=== PATIENT | male | born 1955 | race American Indian/Alaskan Native ===

== ENCOUNTER 2020-07-03 07:22 | Outpatient (CLI) | payer OTHER ==
[2020-07-03 14:53] LABS: BASOPHILS # (AUTO) 0.1 10^3/uL (0.0-0.1); BASOPHILS % (AUTO) 1.2 %; EOSINOPHILS # (AUTO) 0.1 10^3/uL (0.0-0.7); EOSINOPHILS % (AUTO) 1.5 %; HGB - HEMOGLOBIN 14.1 g/dL (14.0-18.0); LYMPHOCYTES # (AUTO) 1.5 10^3/uL (1.5-3.5); LYMPHOCYTES % (AUTO) 29.2 %; MEAN CORPUSCULAR HEMOGLOBIN 34.1 pg (27.0-31.0); MEAN CORPUSCULAR VOLUME 106.3 fL (80.0-94.0); MEAN PLATELET VOLUME 10.4 fL (7.4-11.4); MONOCYTES # (AUTO) 0.6 10^3/uL (0.0-1.0); MONOCYTES % (AUTO) 10.8 %; NEUTROPHILS % (AUTO) 56.9 %; PLT - PLATELET COUNT 259 10^3/uL (130-450); RED BLOOD COUNT 4.14 10^6/uL (4.70-6.10); RED CELL DISTRIBUTION WIDTH 13.2 % (12.0-15.0); WHITE BLOOD COUNT 5.2 x10^3/uL (4.8-10.8)
[2020-07-03 15:20] LABS: ALBUMIN 3.9 g/dL (3.2-5.5); ALBUMIN/GLOBULIN RATIO 1.3 (1.0-2.2); ALKALINE PHOSPHATASE 63 IU/L (42-121); ALT ALANINE AMINOTRANSFERASE 48 IU/L (10-60); AST ASPARTATE AMINOTRANSFERASE 28 IU/L (10-42); BILIRUBIN,TOTAL 0.8 mg/dL (0.2-1.0); BUN - BLOOD UREA NITROGEN 21 mg/dL (6-20); CALCIUM 8.8 mg/dL (8.5-10.3); CARBON DIOXIDE - CO2 27 mmol/L (21-32); CHLORIDE 101 mmol/L (101-111); CHOLESTEROL 173 mg/dL; CREATININE 0.8 mg/dL (0.6-1.2); GLUCOSE 150 mg/dL (70-100); HDL CHOLESTEROL 57 mg/dL; LDL CHOLESTEROL,CALCULATED 101 mg/dL; LDL CHOLESTEROL,DIRECT 101 mg/dL; LDL/HDL RATIO 1.8 (<3.6); TOTAL PROTEIN 6.9 g/dL (6.7-8.2); VLDL CHOLESTEROL 15 mg/dL
[2020-07-03 20:03] LABS: HEMOGLOBIN A1c% 5.9 % (4.27-6.07)
== END 2020-07-03 07:23 | disposition home or self-care (01) ==
LOC: LAB.S 07:22
PROVIDERS: ATTEND Internal Medicine Cardiovascular Disease
DX: I48.21 Permanent atrial fibrillation (principal); Z79.01 Long term (current) use of anticoagulants; R73.03 Prediabetes; I10 Essential (primary) hypertension; E78.5 Hyperlipidemia, unspecified
CPT/HCPCS: 36415; 80053; 80061; 83036; 83721; 84443; 85025

== ENCOUNTER 2021-01-07 06:45 | Outpatient (CLI) | payer OTHER, MEDICARE ==
[2021-01-07 15:07] LABS: ALBUMIN 3.8 g/dL (3.2-5.5); ALBUMIN/GLOBULIN RATIO 1.3 (1.0-2.2); BILIRUBIN,TOTAL 0.7 mg/dL (0.2-1.0); CALCIUM 9.1 mg/dL (8.5-10.3); CREATININE 0.8 mg/dL (0.6-1.2); POTASSIUM 4.5 mmol/L (3.5-5.0); TOTAL PROTEIN 6.7 g/dL (6.7-8.2)
== END 2021-01-07 06:46 | disposition home or self-care (01) ==
LOC: LAB.S 06:45
PROVIDERS: ATTEND Internal Medicine Cardiovascular Disease
DX: I10 Essential (primary) hypertension (principal)
CPT/HCPCS: 36415; 80053

== ENCOUNTER 2023-04-01 07:08 | Outpatient (CLI) | payer MEDICARE, OTHER ==
[2023-04-01 14:41] LABS: BASOPHILS # (AUTO) 0.1 10^3/uL (0.0-0.1); BASOPHILS % (AUTO) 1.4 %; EOSINOPHILS # (AUTO) 0.2 10^3/uL (0.0-0.7); EOSINOPHILS % (AUTO) 4.6 %; HCT - HEMATOCRIT 46.5 % (42.0-52.0); HGB - HEMOGLOBIN 15.1 g/dL (14.0-18.0); LYMPHOCYTES # (AUTO) 1.6 10^3/uL (1.5-3.5); LYMPHOCYTES % (AUTO) 31.8 %; MEAN CORPUSCULAR HEMOGLOBIN 33.3 pg (27.0-31.0); MEAN CORPUSCULAR HGB CONC 32.5 g/dL (32.0-36.0); MEAN CORPUSCULAR VOLUME 102.6 fL (80.0-94.0); MEAN PLATELET VOLUME 10.6 fL (7.4-11.4); MONOCYTES # (AUTO) 0.6 10^3/uL (0.0-1.0); MONOCYTES % (AUTO) 11.3 %; NEUTROPHILS # (AUTO) 2.5 10^3/uL (1.5-6.6); NEUTROPHILS % (AUTO) 50.1 %; PLT - PLATELET COUNT 233 10^3/uL (130-450); RED BLOOD COUNT 4.53 10^6/uL (4.70-6.10); RED CELL DISTRIBUTION WIDTH 14.1 % (12.0-15.0)
[2023-04-01 15:22] LABS: ALBUMIN 4.1 g/dL (3.2-5.5); ALBUMIN/GLOBULIN RATIO 1.6 (1.0-2.2); ALKALINE PHOSPHATASE 91 IU/L (42-121); ALT ALANINE AMINOTRANSFERASE 41 IU/L (10-60); AST ASPARTATE AMINOTRANSFERASE 27 IU/L (10-42); BILIRUBIN,TOTAL 0.5 mg/dL (0.2-1.0); BUN - BLOOD UREA NITROGEN 11 mg/dL (6-20); CARBON DIOXIDE - CO2 27 mmol/L (21-32); CHLORIDE 105 mmol/L (101-111); CHOL/HDL RATIO 3.5 (<5.0); CHOLESTEROL 155 mg/dL; CREATININE 0.7 mg/dL (0.6-1.3); GFR - MDRD 112 (>89); GLUCOSE 116 mg/dL (74-104); HDL CHOLESTEROL 44 mg/dL; LDL CHOLESTEROL,CALCULATED 80 mg/dL; LDL/HDL RATIO 1.8 (<3.6); POTASSIUM 4.4 mmol/L (3.5-4.5); SODIUM 139 mmol/L (135-145); TOTAL PROTEIN 6.6 g/dL (6.4-8.9); TRIGLYCERIDES 156 mg/dL (48-352); VLDL CHOLESTEROL 31 mg/dL
[2023-04-01 15:27] LABS: THYROID STIMULATING HORMONE 1.03 uIU/mL (0.34-5.60)
== END 2023-04-01 07:09 | disposition home or self-care (01) ==
LOC: LAB.S 07:08
PROVIDERS: ATTEND Registered Nurse
DX: I10 Essential (primary) hypertension (principal); Z13.228 Encounter for screening for other metabolic disorders; Z13.220 Encounter for screening for lipoid disorders; Z13.29 Encounter for screening for other suspected endocrine disorder; Z13.0 Encounter for screening for diseases of the blood and blood-forming organs and certain disorders involving the immune mechanism
CPT/HCPCS: 36415; 80053; 80061; 83721; 84443; 85025

== ENCOUNTER 2024-05-24 14:08 | Inpatient (IN) ==
[2024-05-24 15:59] LABS: BASOPHILS % (AUTO) 0.2 %; HCT - HEMATOCRIT 38.6 % (42.0-52.0); HGB - HEMOGLOBIN 13.2 g/dL (14.0-18.0); LYMPHOCYTES # (AUTO) 1.1 10^3/uL (1.5-3.5); LYMPHOCYTES % (AUTO) 10.5 %; MEAN CORPUSCULAR HEMOGLOBIN 35.3 pg (27.0-31.0); MEAN CORPUSCULAR HGB CONC 34.2 g/dL (32.0-36.0); MEAN CORPUSCULAR VOLUME 103.2 fL (80.0-94.0); MONOCYTES % (AUTO) 10.1 %; NEUTROPHILS # (AUTO) 8.1 10^3/uL (1.5-6.6); NEUTROPHILS % (AUTO) 78.9 %; PLT - PLATELET COUNT 227 10^3/uL (130-450); RED BLOOD COUNT 3.74 10^6/uL (4.70-6.10); RED CELL DISTRIBUTION WIDTH 16.2 % (12.0-15.0); WHITE BLOOD COUNT 10.3 x10^3/uL (4.8-10.8)
[2024-05-24 16:23] LABS: MAGNESIUM 2.3 mg/dL (1.7-2.3)
[2024-05-24 16:27] LABS: ALBUMIN 3.1 g/dL (3.2-5.5); BILIRUBIN,TOTAL 1.9 mg/dL (0.2-1.0); CALCIUM 8.5 mg/dL (8.5-10.3); CREATININE 1.4 mg/dL (0.6-1.3); POTASSIUM 6.1 mmol/L (3.5-4.5); TOTAL PROTEIN 6.3 g/dL (6.4-8.9)
--- NOTE | 2024-05-24 17:58 | ED Physician Documentation ---
History of Present Illness Stated complaint Stated Complaint: Chief complaint Chief Complaint: Ext Problem Meds/Allgy Home Medications Ambulatory Orders Medication Instructions Recorded Confirmed apixaban 5 mg tablet (Eliquis) 5 mg PO BID 03/16/24 05/07/24 diltiazem HCl 240 mg capsule,24 240 mg PO QAM 03/16/24 05/07/24 hr,extended release (Tiazac) losartan 25 mg tablet 25 mg PO QDAY 03/16/24 05/07/24 clotrimazole-betamethasone 1 1 applic topical BID 04/06/24 04/06/24 %-0.05 % topical cream fluconazole 150 mg tablet 150 mg PO QDAY 04/06/24 04/06/24 hydrochlorothiazide 12.5 mg tablet 12.5 mg PO QAM #30 tabs 05/07/24 05/07/24 hydrochlorothiazide 12.5 mg tablet 12.5 mg PO QAM #30 tabs 05/08/24 Allergies Allergies Allergy/AdvReac Type Severity Reaction Status Date / Time acetaminophen (From Percocet) Allergy Severe Unknown Verified 05/24/24 14:48 oxycodone (From Percocet) Allergy Severe Unknown Verified 05/24/24 14:48 [facility] Social History Social History (Updated 05/07/24 @ 07:34 by Cornelia Mello, RN, BSN) Smoking Status: Former smoker If you are a former smoker, when did you quit? (Date/Year): 2017 Relationship: Do you feel safe in your home environment?: Yes Suffered physical, verbal, emotional, or financial abuse?: No POLST Patient has POLST: No Results Vitals Vitals: Vital Signs - 24 hr 05/24/24 14:48 05/24/24 17:10 05/24/24 17:30 Temperature 36.5 C Temperature Source Tympanic Pulse Rate 80 86 Respiratory Rate 16 Blood Pressure 118/53 L 105/53 L O2 Saturation 99 100 O2 Source Room air Room air Pain Intensity 0 0 0 Oxygen O2 Source Room air Labs Labs: Laboratory Tests 05/24/24 15:52 WBC 10.3 RBC 3.74 L Hgb 13.2 L Hct 38.6 L MCV 103.2 H MCH 35.3 H MCHC 34.2 RDW 16.2 H Plt Count 227 MPV 10.0 Neut # (Auto) 8.1 H Lymph # (Auto) 1.1 L Foster # (Auto) 1.0 Eos # (Auto) 0.0 Baso # (Auto) 0.0 Absolute Nucleated RBC 0.00 Nucleated RBC % 0.0 Sodium 126 L Potassium 6.1 H* Chloride 95 L Carbon Dioxide 20 L Anion Gap 11.0 BUN 53 H Creatinine 1.4 H Estimated GFR (MDRD) 50 L Glucose 135 H Calcium 8.5 Magnesium 2.3 Total Bilirubin 1.9 H AST 68 H ALT 64 H Alkaline Phosphatase 147 H B-Natriuretic Peptide 311 H Total Protein 6.3 L Albumin 3.1 L Globulin 3.2 Albumin/Globulin Ratio 1.0 Discharge Plan Discharge Prescriptions: No Action losartan 25 mg tablet 25 mg PO QDAY Eliquis 5 mg tablet 5 mg PO BID diltiazem HCl [Tiazac] 240 mg capsule,extended release 24 hr 240 mg PO QAM hydrochlorothiazide 12.5 mg tablet 12.5 mg PO QAM Qty: 30 0RF hydrochlorothiazide 12.5 mg tablet 12.5 mg PO QAM Qty: 30 0RF clotrimazole-betamethasone 1-0.05 % cream 1 applic topical BID fluconazole 150 mg tablet 150 mg PO QDAY Print Language: Turkish Stand Alone Forms: PCP List
[2024-05-24] MEDS: SODIUM ZIRCONIUM CYCLOSILICATE 5 GM PACKET PO ONE (18:07)
[2024-05-24] MEDS: SODIUM CHLORIDE 0.9% 1,000 ML IV STA (18:08)
--- NOTE | 2024-05-24 18:21 | XRAY Report ---
PROCEDURE: XR Chest 1V INDICATIONS: fluid overload evaluation TECHNIQUE: One view of the chest was acquired. COMPARISON: None. FINDINGS: Surgical changes and devices: None. Lungs and pleura: Low lung volumes. Ill-defined opacity projects over the left lower lung. No draina ble effusions. Mediastinum: Normal heart size Bones and chest wall: Unremarkable IMPRESSION: Low lung volumes on single view radiography. Ill-defined left lower lung opacity, probably due to ov erlying soft tissue artifact. A layering effusion is also possible. A lateral view could be helpful. Reviewed by: Conner Bonner MD on 05/24/2024 5:19 PM [facility] Approved by: Conner Bonner MD on 05/24/2024 5:19 PM [facility] Station ID: [id number]
[2024-05-24] MEDS: cefTRIAXone 1 GM in SODIUM CHLORIDE 0.9% MINIBAG 100 ML IV STA (18:40)
[2024-05-24] MEDS: cefTRIAXone 1 GM VIAL IVP STA (18:43)
[2024-05-24] MEDS: VANCOMYCIN INJ 2 GM in SODIUM CHLORIDE 0.9% 500 ML IV ONE (19:03)
[2024-05-24] MEDS: FUROSEMIDE 40 MG/4 ML VIAL IVP SCH (19:03)
--- NOTE | 2024-05-24 19:19 | HISTORY & PHYSICAL EXAMINATION ---
Chief Complaint Chief Complaint Chief Complaint: Leg swelling History of Present Illness Admitted From Admitted From:: Home History Obtained From Records Reviewed: EMR History obtained from: EMR, patient interview Exam Limitations: None History of Present Illness HPI Comment/Other: 68-year-old male PMH of A-fib who has had swelling in his legs since 05/03/2024. He initially presented to a walk-in clinic, where he reported this swelling and asked for a water pill. He was started on hydrochlorothiazide, and his swelling has not improved much. Now, he has red discoloration in both legs. In the ER, CMP showed multiple abnormalities including sodium 126, potassium 6.1, CO2 20, creatinine 1.4, 0.8 a month ago. BNP 383, CRP 5.8. Hospitalist was contacted for admission for acute kidney injury, fluid overload, hyponatremia Meds/Allgy Home Medications Ambulatory Orders Medication Instructions Recorded Confirmed apixaban 5 mg tablet (Eliquis) 5 mg PO BID 03/16/24 05/07/24 diltiazem HCl 240 mg capsule,24 240 mg PO QAM 03/16/24 05/07/24 hr,extended release (Tiazac) losartan 25 mg tablet 25 mg PO QDAY 03/16/24 05/07/24 clotrimazole-betamethasone 1 1 applic topical BID 04/06/24 04/06/24 %-0.05 % topical cream fluconazole 150 mg tablet 150 mg PO QDAY 04/06/24 04/06/24 hydrochlorothiazide 12.5 mg tablet 12.5 mg PO QAM #30 tabs 05/07/24 05/07/24 hydrochlorothiazide 12.5 mg tablet 12.5 mg PO QAM #30 tabs 05/08/24 Allergies Allergies Allergy/AdvReac Type Severity Reaction Status Date / Time acetaminophen (From Percocet) Allergy Severe Unknown Verified 05/24/24 14:48 oxycodone (From Percocet) Allergy Severe Unknown Verified 05/24/24 14:48 [facility] Social History Social History (Updated 05/07/24 @ 07:34 by Cornelia Mello, RN, BSN) Smoking Status: Former smoker If you are a former smoker, when did you quit? (Date/Year): 2018 Relationship: Do you feel safe in your home environment?: Yes Suffered physical, verbal, emotional, or financial abuse?: No POLST Patient has POLST: No Review of Systems Status of ROS: 10 or more systems reviewed and unremarkable except as noted in history and below Constitutional Denies: Fever or Chills Cardiovascular Reports: Irregular heart rate (History of atrial fibrillation); Denies: chest pain, palpitations or shortness of breath with exertion Respiratory Denies: Shortness of breath or Cough Gastrointestinal Denies: Abdominal pain or Abdominal distention Genitourinary Denies: Painful urination or Flank pain Integumentary/Breast Reports: Changes in skin color (Redness in legs associated with swelling) Neurological Denies: General weakness Exam Constitutional normal general appearance, no apparent distress and abnormal body habitus (obese) HENMT normocephalic and head/scalp atraumatic Eyes PERRL Neck/C-Spine visual inspection normal Lymph no lymphadenopathy noted Chest inspection of chest normal Respiratory breath sounds equal bilaterally and clear to auscultation bilaterally Cardiovascular normal heart rate noted Gastrointestinal abdomen abnormal to inspection (Protuberant) Extremities Gross edema and BLE, with red discoloration and blisters Neurology patternmaker hand II-XII intact and GCS 15 Psychiatry oriented x3 Skin Both legs swollen and red Conclusion/Plan Problem List (1) Hyponatremia: Plan: Likely dilutional Check UA 40 mg IV daily Lasix Strict LEIGH ANN Sodium every 4h (2) Acute kidney failure: Plan: Acute kidney failure with metabolic acidosis and hyperkalemia Received Lokelma per ER provider Repeat CMP in progress Cautiously repleting bicarb given hyponatremia 1300 mg sodium bicarb p.o. twice daily (3) Lower extremity edema: Plan: Lasix Echo CRP was elevated, will go ahead and cover for cellulitis Received Rocephin, vancomycin per ER provider Check MRSA swab Continue Rocephin 1 g daily (4) Hypertension, essential, benign: Plan: Continue home regimen after pharmacy verification Hold nephrotoxic agents (5) Atrial fibrillation, chronic: Plan: Continue home regimen after pharmacy verification (6) Elevated LFTs: Plan: No upper abdominal pain Trend CMP Hepatitis panel in a.m. Plan Placed in observation Full code His mother is his surrogate decision maker Lab Results Lab results reviewed: Yes 05/24/24 15:52 05/24/24 15:52
[2024-05-24 19:21] LABS: BILIRUBIN,TOTAL 1.8 mg/dL (0.2-1.0); CALCIUM 8.2 mg/dL (8.5-10.3); CREATININE 1.3 mg/dL (0.6-1.3); POTASSIUM 5.9 mmol/L (3.5-4.5)
[2024-05-24] MEDS ORDERED: ONDANSETRON 4 MG/2 ML VIAL IVP PRN (20:02)
[2024-05-24] MEDS ORDERED: ONDANSETRON ODT 4 MG TABLET TL PRN (20:02)
[2024-05-24] MEDS: SODIUM BICARBONATE 650 MG TABLET PO SCH (20:38)
[2024-05-24] MEDS: SODIUM CHLORIDE FLUSH 0.9% 10 ML SYRINGE IVP SCH (20:39)
[2024-05-24] MEDS: HYDROmorphone 0.5 MG/0.5 ML SYRINGE IVP PRN (20:39)
[2024-05-25 06:07] LABS: BASOPHILS % (AUTO) 0.3 %; EOSINOPHILS % (AUTO) 0.1 %; HCT - HEMATOCRIT 34.8 % (42.0-52.0); HGB - HEMOGLOBIN 11.6 g/dL (14.0-18.0); LYMPHOCYTES # (AUTO) 1.1 10^3/uL (1.5-3.5); LYMPHOCYTES % (AUTO) 11.3 %; MEAN CORPUSCULAR HEMOGLOBIN 34.8 pg (27.0-31.0); MEAN CORPUSCULAR HGB CONC 33.3 g/dL (32.0-36.0); MEAN CORPUSCULAR VOLUME 104.5 fL (80.0-94.0); MEAN PLATELET VOLUME 10.3 fL (7.4-11.4); MONOCYTES # (AUTO) 1.4 10^3/uL (0.0-1.0); MONOCYTES % (AUTO) 14.6 %; NEUTROPHILS # (AUTO) 7.2 10^3/uL (1.5-6.6); NEUTROPHILS % (AUTO) 73.3 %; PLT - PLATELET COUNT 182 10^3/uL (130-450); RED BLOOD COUNT 3.33 10^6/uL (4.70-6.10); RED CELL DISTRIBUTION WIDTH 16.7 % (12.0-15.0); WHITE BLOOD COUNT 9.8 x10^3/uL (4.8-10.8)
[2024-05-25 06:26] LABS: ALBUMIN 2.6 g/dL (3.2-5.5); BILIRUBIN,TOTAL 1.2 mg/dL (0.2-1.0); CALCIUM 7.9 mg/dL (8.5-10.3); CREATININE 1.6 mg/dL (0.6-1.3); POTASSIUM 5.5 mmol/L (3.5-4.5); TOTAL PROTEIN 5.1 g/dL (6.4-8.9)
[2024-05-25] MEDS: LIDOCAINE OINTMENT 5% 35.44 GM TUBE TOP SCH (10:25)
[2024-05-25] MEDS: ALBUMIN 25% 12.5 GM/50 ML VIAL IV STA (10:26)
[2024-05-25] MEDS: HYDROmorphone 0.5 MG/0.5 ML SYRINGE IVP PRN (10:26)
--- NOTE | 2024-05-25 10:46 | PROVIDER PROGRESS NOTE ---
Subjective Prog Note Date Prog Note Date: 05/25/24 Subjective Pt reports feeling: Improved Current Medications Current Medications Current Medications: Current Medications Generic Name Dose Route Start Last Admin Trade Name Freq PRN Reason Stop Dose Admin Acetaminophen 650 mg 05/24/24 20:02 Acetaminophen 325 Mg Tablet PO Q4HR PRN Pain 1 to 4, or Fever Ceftriaxone Sodium 1 gm 05/25/24 18:00 Ceftriaxone 1 Gm Vial IVP 1800 NEHA Furosemide 40 mg 05/24/24 18:56 05/25/24 08:20 Furosemide 40 Mg/4 Ml Vial IVP 40 mg DAILY NEHA Administration Hydromorphone HCl 0.5 mg 05/25/24 10:06 05/25/24 10:26 Hydromorphone 0.5 Mg/0.5 Ml Syringe IVP 0.5 mg Q2H PRN Administration Severe Pain (Level 7-10) Albumin Human 12.5 gm in 50 mls @ 50 mls/hr 05/25/24 10:08 05/25/24 10:26 Albuminar-25 IV 05/25/24 11:07 50 mls/hr ONCE STA Administration Lidocaine 1 applic 05/25/24 11:00 05/25/24 10:25 Lidocaine Ointment 5% 35.44 Gm Tube TOP 1 applic QID NEHA Administration Ondansetron HCl 4 mg 05/24/24 20:02 Ondansetron Odt 4 Mg Tablet TL Q6HR PRN Nausea / Vomiting Ondansetron HCl 4 mg 05/24/24 20:02 Ondansetron 4 Mg/2 Ml Vial IVP Q6HR PRN Nausea / Vomiting Sodium Bicarbonate 1,300 mg 05/24/24 21:00 05/25/24 08:19 Sodium Bicarbonate 650 Mg Tablet PO 1,300 mg BID NEHA Administration Sodium Chloride 10 ml 05/24/24 20:02 Sodium Chloride Flush 0.9% 10 Ml Syringe IVP PRN PRN NEEDED PER PROVIDER ORDERS Sodium Chloride 10 ml 05/25/24 01:00 05/25/24 08:21 Sodium Chloride Flush 0.9% 10 Ml Syringe IVP 10 ml 0100,0900,1700 NEHA Administration Objective Vital Signs/Intake & Output Reviewed Vital Signs: Yes Vital Signs: Vital Signs x48h Temp Pulse Resp BP Pulse Ox 05/25/24 08:03 36.9 C 76 22 92/47 L 97 05/25/24 04:10 36.8 C 80 20 93/54 L 96 Intake & Output: Intake & Output 05/22/24 05/23/24 05/24/24 05/25/24 23:59 23:59 23:59 23:59 Intake Total 1600 / 1600 720 / 720 Balance 1599 / 1600 720 / 720 Weight (kg) 133 kg Objective General Appearance: positive No acute distress and Alert Eyes Bilateral: positive Normal inspection and PERRL ENT: positive No signs of dehydration Neck: positive No JVD Respiratory: positive Chest non-tender and No respiratory distress Cardiovascular: positive Regular rate & rhythm and Systolic murmur Abdomen: positive Non-tender Skin: positive Other (Red discoloration across both legs, blisters due to fluid excess) Extremities: positive Pedal edema Neurologic/Psychiatric: positive Oriented x3 Lab Results 05/25/24 05:19 05/25/24 05:19 Other Labs: Lab Results x24hrs 05/25/24 05/25/24 05/24/24 Range/Units 05:19 03:08 22:57 WBC 9.8 (4.8-10.8) x10^3/uL RBC 3.33 L (4.70-6.10) 10^6/uL Hgb 11.6 L (14.0-18.0) g/dL Hct 34.8 L (42.0-52.0) % MCV 104.5 H (80.0-94.0) fL MCH 34.8 H (27.0-31.0) pg MCHC 33.3 (32.0-36.0) g/dL RDW 16.7 H (12.0-15.0) % Plt Count 182 (130-450) 10^3/uL MPV 10.3 (7.4-11.4) fL Neut # (Auto) 7.2 H (1.5-6.6) 10^3/uL Lymph # (Auto) 1.1 L (1.5-3.5) 10^3/uL Quay # (Auto) 1.4 H (0.0-1.0) 10^3/uL Eos # (Auto) 0.0 (0.0-0.7) 10^3/uL Baso # (Auto) 0.0 (0.0-0.1) 10^3/uL Absolute Nucleated RBC 0.00 x10^3/uL Nucleated RBC % 0.0 /100WBC ESR (0-20) mm/Hr Sodium 128 L 128 L 127 L (135-145) mmol/L Potassium 5.5 H (3.5-4.5) mmol/L Chloride 98 L (101-111) mmol/L Carbon Dioxide 26 (21-32) mmol/L Anion Gap 4.0 L (6-13) BUN 63 H (6-20) mg/dL Creatinine 1.6 H (0.6-1.3) mg/dL Estimated GFR (MDRD) 43 L (>89) Glucose 102 (74-104) mg/dL Calcium 7.9 L (8.5-10.3) mg/dL Magnesium (1.7-2.3) mg/dL Total Bilirubin 1.2 H (0.2-1.0) mg/dL AST 57 H (10-42) IU/L ALT 53 (10-60) IU/L Alkaline Phosphatase 130 H (42-121) IU/L C-Reactive Protein (<0.5) mg/dL B-Natriuretic Peptide (5-100) pg/mL Total Protein 5.1 L (6.4-8.9) g/dL Albumin 2.6 L (3.2-5.5) g/dL Globulin 2.5 (2.1-4.2) g/dL Albumin/Globulin Ratio 1.0 (1.0-2.2) Vitamin B12 762 (180-914) pg/mL Folate 13.4 (5.90 - >24.8) ng/mL Nasal Screen MRSA (PCR) (NEGATIVE) 05/24/24 05/24/24 05/24/24 Range/Units 22:55 19:01 17:56 WBC (4.8-10.8) x10^3/uL RBC (4.70-6.10) 10^6/uL Hgb (14.0-18.0) g/dL Hct (42.0-52.0) % MCV (80.0-94.0) fL MCH (27.0-31.0) pg MCHC (32.0-36.0) g/dL RDW (12.0-15.0) % Plt Count (130-450) 10^3/uL MPV (7.4-11.4) fL Neut # (Auto) (1.5-6.6) 10^3/uL Lymph # (Auto) (1.5-3.5) 10^3/uL Quay # (Auto) (0.0-1.0) 10^3/uL Eos # (Auto) (0.0-0.7) 10^3/uL Baso # (Auto) (0.0-0.1) 10^3/uL Absolute Nucleated RBC x10^3/uL Nucleated RBC % /100WBC ESR 46 H (0-20) mm/Hr Sodium 126 L (135-145) mmol/L Potassium 5.9 H (3.5-4.5) mmol/L Chloride 95 L (101-111) mmol/L Carbon Dioxide 23 (21-32) mmol/L Anion Gap 8.0 (6-13) BUN 54 H (6-20) mg/dL Creatinine 1.3 (0.6-1.3) mg/dL Estimated GFR (MDRD) 55 L (>89) Glucose 117 H (74-104) mg/dL Calcium 8.2 L (8.5-10.3) mg/dL Magnesium (1.7-2.3) mg/dL Total Bilirubin 1.8 H (0.2-1.0) mg/dL AST 65 H (10-42) IU/L ALT 62 H (10-60) IU/L Alkaline Phosphatase 138 H (42-121) IU/L C-Reactive Protein 5.8 H (<0.5) mg/dL B-Natriuretic Peptide 383 H (5-100) pg/mL Total Protein 6.0 L (6.4-8.9) g/dL Albumin 3.0 L (3.2-5.5) g/dL Globulin 3.0 (2.1-4.2) g/dL Albumin/Globulin Ratio 1.0 (1.0-2.2) Vitamin B12 (180-914) pg/mL Folate (5.90 - >24.8) ng/mL Nasal Screen MRSA (PCR) NEGATIVE (NEGATIVE) 05/24/24 Range/Units 15:52 WBC 10.3 (4.8-10.8) x10^3/uL RBC 3.74 L (4.70-6.10) 10^6/uL Hgb 13.2 L (14.0-18.0) g/dL Hct 38.6 L (42.0-52.0) % MCV 103.2 H (80.0-94.0) fL MCH 35.3 H (27.0-31.0) pg MCHC 34.2 (32.0-36.0) g/dL RDW 16.2 H (12.0-15.0) % Plt Count 227 (130-450) 10^3/uL MPV 10.0 (7.4-11.4) fL Neut # (Auto) 8.1 H (1.5-6.6) 10^3/uL Lymph # (Auto) 1.1 L (1.5-3.5) 10^3/uL Quay # (Auto) 1.0 (0.0-1.0) 10^3/uL Eos # (Auto) 0.0 (0.0-0.7) 10^3/uL Baso # (Auto) 0.0 (0.0-0.1) 10^3/uL Absolute Nucleated RBC 0.00 x10^3/uL Nucleated RBC % 0.0 /100WBC ESR (0-20) mm/Hr Sodium 126 L (135-145) mmol/L Potassium 6.1 H* (3.5-4.5) mmol/L Chloride 95 L (101-111) mmol/L Carbon Dioxide 20 L (21-32) mmol/L Anion Gap 11.0 (6-13) BUN 53 H (6-20) mg/dL Creatinine 1.4 H (0.6-1.3) mg/dL Estimated GFR (MDRD) 50 L (>89) Glucose 135 H (74-104) mg/dL Calcium 8.5 (8.5-10.3) mg/dL Magnesium 2.3 (1.7-2.3) mg/dL Total Bilirubin 1.9 H (0.2-1.0) mg/dL AST 68 H (10-42) IU/L ALT 64 H (10-60) IU/L Alkaline Phosphatase 147 H (42-121) IU/L C-Reactive Protein (<0.5) mg/dL B-Natriuretic Peptide 311 H (5-100) pg/mL Total Protein 6.3 L (6.4-8.9) g/dL Albumin 3.1 L (3.2-5.5) g/dL Globulin 3.2 (2.1-4.2) g/dL Albumin/Globulin Ratio 1.0 (1.0-2.2) Vitamin B12 (180-914) pg/mL Folate (5.90 - >24.8) ng/mL Nasal Screen MRSA (PCR) (NEGATIVE) Assessment/Plan Problem List (1) Hyponatremia: Impression: Likely delusional UA not collected due to patient refusal of catheter and scrotal edema 40 mg IV Lasix daily Monitor intake and output Sodium every 4 hours He is also receiving sodium bicarb pills (2) Acute kidney failure: Impression: Acute kidney failure with metabolic acidosis and hyperkalemia Received Lokelma per ER provider CR up to 1.6 today, Potassium down to 5.5, CO2 26 Cautiously repleting bicarb given hyponatremia 1300 mg sodium bicarb p.o. twice daily Albumin (3) Lower extremity edema: Impression: Improving with IV Lasix Echo has been performed, awaiting read (4) Hypertension, essential, benign: Impression: BP 92/47 at last read Holding home antihypertensives while he is being aggressively diuresed (5) Atrial fibrillation, chronic: Impression: Currently rate controlled off of his home diltiazem Restart Eliquis Hold Cardizem until echo is read or if his heart rate increases (6) Elevated LFTs: Impression: Improving Hepatitis panel ordered
--- NOTE | 2024-05-25 12:01 | PHARMACY PROGRESS NOTE ---
Best Possible Medication History Admit Date and Time: 05/24/24 1856 Home Medications Medication Instructions Recorded Confirmed Type apixaban 5 mg tablet (Eliquis) 5 mg PO BID 03/16/24 05/25/24 History diltiazem HCl 240 mg capsule,24 240 mg PO QAM 03/16/24 05/25/24 History hr,extended release (Tiazac) losartan 25 mg tablet 25 mg PO QDAY 03/16/24 05/25/24 History clotrimazole-betamethasone 1 1 applic topical BID 04/06/24 05/25/24 History %-0.05 % topical cream hydrochlorothiazide 12.5 mg tablet 12.5 mg PO QAM #30 tabs 05/07/24 05/25/24 Rx Processed by: Pharmacy Medications reviewed in ED?: No Medication History completed: Yes Patient Interview: Completed Secondary Source(s): Pharmacy records and Insurance records [facility] Statement: As the person ultimately responsible for medication therapy, providers are able to order a medication from an existing home medication list in [facility] via the "Reconcile Routine" prior to Confirmation of that medication by technical support 1 software engineer. Such practice is discouraged except when the physician, in their clinical judgment, deems that a medical need exists for a medication without regard to previous use.
[2024-05-25] MEDS: CLOTRIMAZOLE/BETAMETHASONE 15 GM TUBE TOP SCH (12:22)
[2024-05-25 13:56] LABS: BILIRUBIN,URINE NEGATIVE (NEGATIVE); GLUCOSE, URINE (UA) NEGATIVE (NEGATIVE); KETONES,URINE (UA) NEGATIVE (NEGATIVE); LEUKOCYTE ESTERASE, URINE NEGATIVE (NEGATIVE); NITRITE,URINE NEGATIVE (NEGATIVE); OCCULT BLOOD,URINE NEGATIVE (NEGATIVE); PROTEIN,URINE NEGATIVE (NEGATIVE); UROBILINOGEN,URINE 0.2 (NORMAL) E.U./dL (NORMAL)
[2024-05-25 13:58] LABS: CLARITY,URINE CLEAR (CLEAR)
[2024-05-25] MEDS: cefTRIAXone 1 GM VIAL IVP SCH (17:57)
[2024-05-25] MEDS: APIXABAN 5 MG TABLET PO SCH (21:40)
[2024-05-25] MEDS: SODIUM CHLORIDE 1 GM TABLET PO SCH (21:41)
[2024-05-26 03:12] LABS: BASOPHILS % (AUTO) 0.5 %; EOSINOPHILS % (AUTO) 0.5 %; HCT - HEMATOCRIT 32.9 % (42.0-52.0); HGB - HEMOGLOBIN 11.4 g/dL (14.0-18.0); LYMPHOCYTES # (AUTO) 1.4 10^3/uL (1.5-3.5); LYMPHOCYTES % (AUTO) 16.4 %; MEAN CORPUSCULAR HEMOGLOBIN 36.1 pg (27.0-31.0); MEAN CORPUSCULAR HGB CONC 34.7 g/dL (32.0-36.0); MEAN CORPUSCULAR VOLUME 104.1 fL (80.0-94.0); MEAN PLATELET VOLUME 10.2 fL (7.4-11.4); MONOCYTES # (AUTO) 1.3 10^3/uL (0.0-1.0); MONOCYTES % (AUTO) 15.7 %; NEUTROPHILS # (AUTO) 5.7 10^3/uL (1.5-6.6); NEUTROPHILS % (AUTO) 66.5 %; PLT - PLATELET COUNT 152 10^3/uL (130-450); RED BLOOD COUNT 3.16 10^6/uL (4.70-6.10); RED CELL DISTRIBUTION WIDTH 16.3 % (12.0-15.0); WHITE BLOOD COUNT 8.5 x10^3/uL (4.8-10.8)
[2024-05-26 03:29] LABS: ALBUMIN 2.6 g/dL (3.2-5.5); ALBUMIN/GLOBULIN RATIO 1.2 (1.0-2.2); BILIRUBIN,TOTAL 1.1 mg/dL (0.2-1.0); CALCIUM 8.1 mg/dL (8.5-10.3); CREATININE 1.4 mg/dL (0.6-1.3); POTASSIUM 5.4 mmol/L (3.5-4.5); TOTAL PROTEIN 4.7 g/dL (6.4-8.9)
[2024-05-26 04:07] LABS: HBsAG SCREEN Negative (Negative); HCV AB Non Reactive (Non Reactive); HEPATITIS B CORE IGM AB Negative (Negative)
--- NOTE | 2024-05-26 10:31 | PROVIDER PROGRESS NOTE ---
Subjective Prog Note Date Prog Note Date: 05/26/24 Subjective Pt reports feeling: Improved Subjective: Swelling in his legs continues to improve Current Medications Current Medications Current Medications: Current Medications Generic Name Dose Route Start Last Admin Trade Name Malaika PRN Reason Stop Dose Admin Acetaminophen 650 mg 05/24/24 20:02 Acetaminophen 325 Mg Tablet PO Q4HR PRN Pain 1 to 4, or Fever Apixaban 5 mg 05/25/24 21:00 05/26/24 09:07 Apixaban 5 Mg Tablet PO 5 mg BID NEHA Administration Ceftriaxone Sodium 1 gm 05/25/24 18:00 05/25/24 17:57 Ceftriaxone 1 Gm Vial IVP 1 gm 1800 NEHA Administration Clotrimazole 1 applic 05/25/24 11:00 05/26/24 09:07 Clotrimazole/Betamethasone 15 Gm Tube TOP 1 applic BID NEHA Administration Furosemide 40 mg 05/26/24 10:00 Furosemide 40 Mg/4 Ml Vial IVP BIDDIURETIC NEHA Hydromorphone HCl 0.5 mg 05/25/24 10:06 05/26/24 09:24 Hydromorphone 0.5 Mg/0.5 Ml Syringe IVP 0.5 mg Q2H PRN Administration Severe Pain (Level 7-10) Lidocaine 1 applic 05/25/24 11:00 05/26/24 09:08 Lidocaine Ointment 5% 35.44 Gm Tube TOP 1 applic QID NEHA Administration Ondansetron HCl 4 mg 05/24/24 20:02 Ondansetron Odt 4 Mg Tablet TL Q6HR PRN Nausea / Vomiting Ondansetron HCl 4 mg 05/24/24 20:02 Ondansetron 4 Mg/2 Ml Vial IVP Q6HR PRN Nausea / Vomiting Sodium Bicarbonate 1,300 mg 05/24/24 21:00 05/26/24 09:23 Sodium Bicarbonate 650 Mg Tablet PO 1,300 mg BID NEHA Administration Sodium Chloride 10 ml 05/24/24 20:02 Sodium Chloride Flush 0.9% 10 Ml Syringe IVP PRN PRN NEEDED PER PROVIDER ORDERS Sodium Chloride 10 ml 05/25/24 01:00 05/26/24 09:06 Sodium Chloride Flush 0.9% 10 Ml Syringe IVP 10 ml 0100,0900,1700 NEHA Administration Sodium Chloride 2 gm 05/25/24 21:00 05/26/24 09:07 Sodium Chloride 1 Gm Tablet PO 2 gm BID NEHA Administration Objective Vital Signs/Intake & Output Reviewed Vital Signs: Yes Vital Signs: Vital Signs x48h Temp Pulse Resp BP Pulse Ox 05/26/24 09:00 36.5 C 81 20 125/68 97 05/26/24 05:00 36.8 C 72 20 124/71 98 Intake & Output: Intake & Output 05/23/24 05/24/24 05/25/24 05/26/24 23:59 23:59 23:59 23:59 Intake Total 1599 / 1599 2110 / 2110 1304 / 1304 Output Total 90 / 90 1350 / 1350 Balance 1599 / 1599 -46 / -46 Weight (kg) 133 kg Objective General Appearance: positive No acute distress and Alert Eyes Bilateral: positive Normal inspection and PERRL ENT: positive No signs of dehydration Neck: positive No JVD Respiratory: positive Chest non-tender and No respiratory distress Cardiovascular: positive Regular rate & rhythm and Systolic murmur Abdomen: positive Non-tender Skin: positive Other (Red discoloration across both legs, blisters due to fluid excess) Extremities: positive Pedal edema Neurologic/Psychiatric: positive Oriented x3 Lab Results 05/26/24 03:05 05/26/24 03:05 Other Labs: Lab Results x24hrs 05/26/24 05/26/24 05/25/24 Range/Units 03:05 03:05 22:53 WBC 8.5 (4.8-10.8) x10^3/uL RBC 3.16 L (4.70-6.10) 10^6/uL Hgb 11.4 L (14.0-18.0) g/dL Hct 32.9 L (42.0-52.0) % MCV 104.1 H (80.0-94.0) fL MCH 36.1 H (27.0-31.0) pg MCHC 34.7 (32.0-36.0) g/dL RDW 16.3 H (12.0-15.0) % Plt Count 152 (130-450) 10^3/uL MPV 10.2 (7.4-11.4) fL Neut # (Auto) 5.7 (1.5-6.6) 10^3/uL Lymph # (Auto) 1.4 L (1.5-3.5) 10^3/uL [place] # (Auto) 1.3 H (0.0-1.0) 10^3/uL Eos # (Auto) 0.0 (0.0-0.7) 10^3/uL Baso # (Auto) 0.0 (0.0-0.1) 10^3/uL Absolute Nucleated RBC 0.00 x10^3/uL Nucleated RBC % 0.0 /100WBC Sodium 127 L 127 L 128 L (135-145) mmol/L Potassium 5.4 H (3.5-4.5) mmol/L Chloride 99 L (101-111) mmol/L Carbon Dioxide 24 (21-32) mmol/L Anion Gap 4.0 L (6-13) BUN 68 H (6-20) mg/dL Creatinine 1.4 H (0.6-1.3) mg/dL Estimated GFR (MDRD) 50 L (>89) Glucose 137 H (74-104) mg/dL Calcium 8.1 L (8.5-10.3) mg/dL Total Bilirubin 1.1 H (0.2-1.0) mg/dL AST 55 H (10-42) IU/L ALT 48 (10-60) IU/L Alkaline Phosphatase 117 (42-121) IU/L Total Protein 4.7 L (6.4-8.9) g/dL Albumin 2.6 L (3.2-5.5) g/dL Globulin 2.1 (2.1-4.2) g/dL Albumin/Globulin Ratio 1.2 (1.0-2.2) Urine Color Urine Clarity (CLEAR) Urine pH (5.0-7.5) PH Ur Specific [place] (1.002-1.030) Urine Protein (NEGATIVE) mg/dL Urine Glucose (UA) (NEGATIVE) mg/dL Urine Ketones (NEGATIVE) mg/dL Urine Occult Blood (NEGATIVE) Urine Nitrite (NEGATIVE) Urine Bilirubin (NEGATIVE) Urine Urobilinogen (NORMAL) E.U./dL Ur Leukocyte Esterase (NEGATIVE) Ur Microscopic Review Urine Culture Comments Hepatitis A IgM Ab (Negative) Hep Bs Antigen (Negative) Hep B Core IgM Ab (Negative) Hepatitis C Antibody (Non Reactive) Hepatitis C Interp (.) 05/25/24 05/25/24 05/25/24 Range/Units 18:43 14:48 13:25 WBC (4.8-10.8) x10^3/uL RBC (4.70-6.10) 10^6/uL Hgb (14.0-18.0) g/dL Hct (42.0-52.0) % MCV (80.0-94.0) fL MCH (27.0-31.0) pg MCHC (32.0-36.0) g/dL RDW (12.0-15.0) % Plt Count (130-450) 10^3/uL MPV (7.4-11.4) fL Neut # (Auto) (1.5-6.6) 10^3/uL Lymph # (Auto) (1.5-3.5) 10^3/uL [place] # (Auto) (0.0-1.0) 10^3/uL Eos # (Auto) (0.0-0.7) 10^3/uL Baso # (Auto) (0.0-0.1) 10^3/uL Absolute Nucleated RBC x10^3/uL Nucleated RBC % /100WBC Sodium 126 L 127 L (135-145) mmol/L Potassium (3.5-4.5) mmol/L Chloride (101-111) mmol/L Carbon Dioxide (21-32) mmol/L Anion Gap (6-13) BUN (6-20) mg/dL Creatinine (0.6-1.3) mg/dL Estimated GFR (MDRD) (>89) Glucose (74-104) mg/dL Calcium (8.5-10.3) mg/dL Total Bilirubin (0.2-1.0) mg/dL AST (10-42) IU/L ALT (10-60) IU/L Alkaline Phosphatase (42-121) IU/L Total Protein (6.4-8.9) g/dL Albumin (3.2-5.5) g/dL Globulin (2.1-4.2) g/dL Albumin/Globulin Ratio (1.0-2.2) Urine Color YELLOW Urine Clarity CLEAR (CLEAR) Urine pH 6.0 (5.0-7.5) PH Ur Specific [place] 1.020 (1.002-1.030) Urine Protein NEGATIVE (NEGATIVE) mg/dL Urine Glucose (UA) NEGATIVE (NEGATIVE) mg/dL Urine Ketones NEGATIVE (NEGATIVE) mg/dL Urine Occult Blood NEGATIVE (NEGATIVE) Urine Nitrite NEGATIVE (NEGATIVE) Urine Bilirubin NEGATIVE (NEGATIVE) Urine Urobilinogen 0.2 (NORMAL) (NORMAL) E.U./dL Ur Leukocyte Esterase NEGATIVE (NEGATIVE) Ur Microscopic Review NOT INDICATED Urine Culture Comments NOT INDICATED Hepatitis A IgM Ab (Negative) Hep Bs Antigen (Negative) Hep B Core IgM Ab (Negative) Hepatitis C Antibody (Non Reactive) Hepatitis C Interp (.) 05/25/24 05/25/24 Range/Units 10:53 05:19 WBC (4.8-10.8) x10^3/uL RBC (4.70-6.10) 10^6/uL Hgb (14.0-18.0) g/dL Hct (42.0-52.0) % MCV (80.0-94.0) fL MCH (27.0-31.0) pg MCHC (32.0-36.0) g/dL RDW (12.0-15.0) % Plt Count (130-450) 10^3/uL MPV (7.4-11.4) fL Neut # (Auto) (1.5-6.6) 10^3/uL Lymph # (Auto) (1.5-3.5) 10^3/uL [place] # (Auto) (0.0-1.0) 10^3/uL Eos # (Auto) (0.0-0.7) 10^3/uL Baso # (Auto) (0.0-0.1) 10^3/uL Absolute Nucleated RBC x10^3/uL Nucleated RBC % /100WBC Sodium 126 L (135-145) mmol/L Potassium (3.5-4.5) mmol/L Chloride (101-111) mmol/L Carbon Dioxide (21-32) mmol/L Anion Gap (6-13) BUN (6-20) mg/dL Creatinine (0.6-1.3) mg/dL Estimated GFR (MDRD) (>89) Glucose (74-104) mg/dL Calcium (8.5-10.3) mg/dL Total Bilirubin (0.2-1.0) mg/dL AST (10-42) IU/L ALT (10-60) IU/L Alkaline Phosphatase (42-121) IU/L Total Protein (6.4-8.9) g/dL Albumin (3.2-5.5) g/dL Globulin (2.1-4.2) g/dL Albumin/Globulin Ratio (1.0-2.2) Urine Color Urine Clarity (CLEAR) Urine pH (5.0-7.5) PH Ur Specific [place] (1.002-1.030) Urine Protein (NEGATIVE) mg/dL Urine Glucose (UA) (NEGATIVE) mg/dL Urine Ketones (NEGATIVE) mg/dL Urine Occult Blood (NEGATIVE) Urine Nitrite (NEGATIVE) Urine Bilirubin (NEGATIVE) Urine Urobilinogen (NORMAL) E.U./dL Ur Leukocyte Esterase (NEGATIVE) Ur Microscopic Review Urine Culture Comments Hepatitis A IgM Ab Negative (Negative) Hep Bs Antigen Negative (Negative) Hep B Core IgM Ab Negative (Negative) Hepatitis C Antibody Non Reactive (Non Reactive) Hepatitis C Interp Comment (.) Assessment/Plan Problem List (1) Hyponatremia: Impression: Likely dilution UA not collected due to patient refusal of catheter and scrotal edema 40 mg IV Lasix daily Monitor intake and output Sodium every 4 hours He is also receiving sodium bicarb pills 05/26/2024: Added salt tabs, increase Lasix dose to 40 mg IV twice daily (2) Acute kidney failure: Impression: Acute kidney failure with metabolic acidosis and hyperkalemia Received Lokelma per ER provider CR up to 1.6 today, Potassium down to 5.5, CO2 26 Cautiously repleting bicarb given hyponatremia 1300 mg sodium bicarb p.o. twice daily Albumin 05/26/2024: CR 1.4 today (3) Lower extremity edema: Impression: Improving with IV Lasix Echo has been performed, awaiting read (4) Hypertension, essential, benign: Impression: BP 125/68 Continue to hold home antihypertensives while undergoing aggressive diuresis (5) Atrial fibrillation, chronic: Impression: Currently rate controlled off of his home diltiazem Restart Eliquis Hold Cardizem until echo is read or if his heart rate increases (6) Elevated LFTs: Impression: Improving Hepatitis panel negative
[2024-05-26] MEDS: FUROSEMIDE 40 MG/4 ML VIAL IVP SCH (10:59)
[2024-05-26] MEDS: SODIUM CHLORIDE FLUSH 0.9% 10 ML SYRINGE IVP PRN (14:11)
[2024-05-27 05:25] LABS: BASOPHILS % (AUTO) 0.5 %; EOSINOPHILS # (AUTO) 0.1 10^3/uL (0.0-0.7); EOSINOPHILS % (AUTO) 0.6 %; HCT - HEMATOCRIT 32.9 % (42.0-52.0); HGB - HEMOGLOBIN 11.3 g/dL (14.0-18.0); LYMPHOCYTES # (AUTO) 1.3 10^3/uL (1.5-3.5); LYMPHOCYTES % (AUTO) 14.1 %; MEAN CORPUSCULAR HEMOGLOBIN 35.6 pg (27.0-31.0); MEAN CORPUSCULAR HGB CONC 34.3 g/dL (32.0-36.0); MEAN CORPUSCULAR VOLUME 103.8 fL (80.0-94.0); MEAN PLATELET VOLUME 10.3 fL (7.4-11.4); MONOCYTES # (AUTO) 1.2 10^3/uL (0.0-1.0); MONOCYTES % (AUTO) 13.9 %; NEUTROPHILS # (AUTO) 6.2 10^3/uL (1.5-6.6); NEUTROPHILS % (AUTO) 70.4 %; PLT - PLATELET COUNT 164 10^3/uL (130-450); RED BLOOD COUNT 3.17 10^6/uL (4.70-6.10); RED CELL DISTRIBUTION WIDTH 16.1 % (12.0-15.0); WHITE BLOOD COUNT 8.8 x10^3/uL (4.8-10.8)
[2024-05-27 05:40] LABS: ALBUMIN 2.5 g/dL (3.2-5.5); ALBUMIN/GLOBULIN RATIO 1.3 (1.0-2.2); CALCIUM 7.9 mg/dL (8.5-10.3); CREATININE 1.1 mg/dL (0.6-1.3); POTASSIUM 4.8 mmol/L (3.5-4.5); TOTAL PROTEIN 4.4 g/dL (6.4-8.9)
[2024-05-27] MEDS: MULTIVITAMIN W/MINERALS TABLET PO SCH (11:55)
[2024-05-27] MEDS: NEOMYCIN/BACITRA/POLYMYX OINT PACKET TOP SCH (11:55)
--- NOTE | 2024-05-27 12:54 | PROVIDER PROGRESS NOTE ---
Subjective Prog Note Date Prog Note Date: 05/27/24 Subjective Pt reports feeling: Improved Current Medications Current Medications Current Medications: Current Medications Generic Name Dose Route Start Last Admin Trade Name Freq PRN Reason Stop Dose Admin Acetaminophen 650 mg 05/24/24 20:02 Acetaminophen 325 Mg Tablet PO Q4HR PRN Pain 1 to 4, or Fever Apixaban 5 mg 05/25/24 21:00 05/27/24 09:23 Apixaban 5 Mg Tablet PO 5 mg BID NEHA Administration Ceftriaxone Sodium 1 gm 05/25/24 18:00 05/26/24 18:07 Ceftriaxone 1 Gm Vial IVP 1 gm 1800 NEHA Administration Clotrimazole 1 applic 05/25/24 11:00 05/27/24 09:24 Clotrimazole/Betamethasone 15 Gm Tube TOP 1 applic BID NEHA Administration Furosemide 40 mg 05/26/24 10:00 05/27/24 06:42 Furosemide 40 Mg/4 Ml Vial IVP 40 mg BIDDIURETIC NEHA Administration Hydromorphone HCl 0.5 mg 05/25/24 10:06 05/27/24 12:04 Hydromorphone 0.5 Mg/0.5 Ml Syringe IVP 0.5 mg Q2H PRN Administration Severe Pain (Level 7-10) Lidocaine 1 applic 05/25/24 11:00 05/27/24 09:24 Lidocaine Ointment 5% 35.44 Gm Tube TOP 1 applic QID NEHA Administration Multivitamins/Minerals 1 tab 05/27/24 11:00 05/27/24 11:55 Multivitamin W/Minerals Tablet PO 1 tab DAILYWM NEHA Administration Neomycin/Polymyxin/Bacitracin 1 packet 05/27/24 11:00 05/27/24 11:55 Neomycin/Bacitra/Polymyx Oint Packet TOP 1 packet BID NEHA Administration Ondansetron HCl 4 mg 05/24/24 20:02 Ondansetron Odt 4 Mg Tablet TL Q6HR PRN Nausea / Vomiting Ondansetron HCl 4 mg 05/24/24 20:02 Ondansetron 4 Mg/2 Ml Vial IVP Q6HR PRN Nausea / Vomiting Sodium Chloride 10 ml 05/24/24 20:02 05/27/24 12:04 Sodium Chloride Flush 0.9% 10 Ml Syringe IVP 10 ml PRN PRN Administration NEEDED PER PROVIDER ORDERS Sodium Chloride 10 ml 01/03/25 01:00 05/27/24 09:24 Sodium Chloride Flush 0.9% 10 Ml Syringe IVP 10 ml 0100,0900,1700 NEHA Administration Sodium Chloride 2 gm 05/25/24 21:00 05/27/24 09:23 Sodium Chloride 1 Gm Tablet PO 2 gm BID NEHA Administration Objective Vital Signs/Intake & Output Reviewed Vital Signs: Yes Vital Signs: Vital Signs x48h Temp Pulse Resp BP Pulse Ox 05/27/24 12:37 36.8 C 97 20 138/82 H 94 05/27/24 09:00 36.8 C 97 20 118/75 95 05/27/24 05:00 37.3 C 97 20 108/69 96 Intake & Output: Intake & Output 05/24/24 05/25/24 05/26/24 05/27/24 23:59 23:59 23:59 23:59 Intake Total 1600 / 1600 2110 / 2110 1184 / 1184 1805 / 1805 Output Total 90 / 90 1900 / 1900 875 / 875 Balance 1600 / 1600 2019 / 2019 -716 / -716 930 / 930 Weight (kg) 133 kg Objective General Appearance: positive No acute distress and Alert Eyes Bilateral: positive Normal inspection and PERRL ENT: positive No signs of dehydration Neck: positive No JVD Respiratory: positive Chest non-tender and No respiratory distress Cardiovascular: positive Regular rate & rhythm and Systolic murmur Abdomen: positive Non-tender Skin: positive Other (Red discoloration across both legs, Area of discoloration marked. Sloughing skin on some areas of blister) Extremities: positive Pedal edema (Much improved) Neurologic/Psychiatric: positive Oriented x3 Lab Results 05/27/24 05:00 05/27/24 05:00 Other Labs: Lab Results x24hrs 05/27/24 05/27/24 05/26/24 Range/Units 05:00 01:01 21:13 WBC 8.8 (4.8-10.8) x10^3/uL RBC 3.17 L (4.70-6.10) 10^6/uL Hgb 11.3 L (14.0-18.0) g/dL Hct 32.9 L (42.0-52.0) % MCV 103.8 H (80.0-94.0) fL MCH 35.6 H (27.0-31.0) pg MCHC 34.3 (32.0-36.0) g/dL RDW 16.1 H (12.0-15.0) % Plt Count 164 (130-450) 10^3/uL MPV 10.3 (7.4-11.4) fL Neut # (Auto) 6.2 (1.5-6.6) 10^3/uL Lymph # (Auto) 1.3 L (1.5-3.5) 10^3/uL [place] # (Auto) 1.2 H (0.0-1.0) 10^3/uL Eos # (Auto) 0.1 (0.0-0.7) 10^3/uL Baso # (Auto) 0.0 (0.0-0.1) 10^3/uL Absolute Nucleated RBC 0.00 x10^3/uL Nucleated RBC % 0.0 /100WBC Sodium 133 L 132 L 131 L (135-145) mmol/L Potassium 4.8 H (3.5-4.5) mmol/L Chloride 102 (101-111) mmol/L Carbon Dioxide 27 (21-32) mmol/L Anion Gap 4.0 L (6-13) BUN 56 H (6-20) mg/dL Creatinine 1.1 (0.6-1.3) mg/dL Estimated GFR (MDRD) 67 L (>89) Glucose 151 H (74-104) mg/dL Calcium 7.9 L (8.5-10.3) mg/dL Total Bilirubin 1.0 (0.2-1.0) mg/dL AST 52 H (10-42) IU/L ALT 46 (10-60) IU/L Alkaline Phosphatase 112 (42-121) IU/L Total Protein 4.4 L (6.4-8.9) g/dL Albumin 2.5 L (3.2-5.5) g/dL Globulin 1.9 L (2.1-4.2) g/dL Albumin/Globulin Ratio 1.3 (1.0-2.2) 05/26/24 Range/Units 17:25 WBC (4.8-10.8) x10^3/uL RBC (4.70-6.10) 10^6/uL Hgb (14.0-18.0) g/dL Hct (42.0-52.0) % MCV (80.0-94.0) fL MCH (27.0-31.0) pg MCHC (32.0-36.0) g/dL RDW (12.0-15.0) % Plt Count (130-450) 10^3/uL MPV (7.4-11.4) fL Neut # (Auto) (1.5-6.6) 10^3/uL Lymph # (Auto) (1.5-3.5) 10^3/uL [place] # (Auto) (0.0-1.0) 10^3/uL Eos # (Auto) (0.0-0.7) 10^3/uL Baso # (Auto) (0.0-0.1) 10^3/uL Absolute Nucleated RBC x10^3/uL Nucleated RBC % /100WBC Sodium 132 L (135-145) mmol/L Potassium (3.5-4.5) mmol/L Chloride (101-111) mmol/L Carbon Dioxide (21-32) mmol/L Anion Gap (6-13) BUN (6-20) mg/dL Creatinine (0.6-1.3) mg/dL Estimated GFR (MDRD) (>89) Glucose (74-104) mg/dL Calcium (8.5-10.3) mg/dL Total Bilirubin (0.2-1.0) mg/dL AST (10-42) IU/L ALT (10-60) IU/L Alkaline Phosphatase (42-121) IU/L Total Protein (6.4-8.9) g/dL Albumin (3.2-5.5) g/dL Globulin (2.1-4.2) g/dL Albumin/Globulin Ratio (1.0-2.2) Assessment/Plan Problem List (1) Lower extremity edema: Impression: Improving with IV Lasix Echo has been performed, awaiting read Cellulitis in his legs is likely secondary to stress from lower His ESR and CRP were elevated on admit, and he was placed on Rocephin. Today, swelling is much improved. I removed his dressings on both legs. Skin overall looks macerated, but The swelling is much better. I am leaving his legs open to air, with antibiotic ointment. There was some areas of skin sloughing and purulence. This has been cultured. Areas of redness marked (2) Hyponatremia: Impression: Likely dilution UA not collected due to patient refusal of catheter and scrotal edema 40 mg IV Lasix daily Monitor intake and output Sodium every 4 hours He is also receiving sodium bicarb pills 05/26/2024: Added salt tabs, increase Lasix dose to 40 mg IV twice daily 05/27/2024: Improved, will keep on salt tabs, stopping sodium bicarb tabs. De- escalate sodium checks to daily (3) Acute kidney failure: Impression: Acute kidney failure with metabolic acidosis and hyperkalemia Received Drew per ER provider CR up to 1.6 today, Potassium down to 5.5, CO2 26 Cautiously repleting bicarb given hyponatremia 1300 mg sodium bicarb p.o. twice daily Albumin 05/26/2024: CR 1.4 today 05/27/2024: CR 1.1 today, K4.8. Continue IV Lasix through the end of day today, de-escalate to p.o. in a.m. Stopped bicarb (4) Hypertension, essential, benign: Impression: BP 125/68 Continue to hold home antihypertensives while undergoing aggressive diuresis 05/27/2024: Restarting losartan, diltiazem in a.m. (5) Atrial fibrillation, chronic: Impression: Currently rate controlled off of his home diltiazem Restart Eliquis Hold Cardizem until echo is read or if his heart rate increases 05/27/2024: Restarting Cardizem (6) Elevated LFTs: Impression: Improving Hepatitis panel negative
[2024-05-27] MEDS: diltiaZEM CD 240 MG CAPSULE PO SCH (13:54)
--- NOTE | 2024-05-27 13:54 | CONSULTATION NOTE ---
[facility] Social History Social History (Updated 05/07/24 @ 07:34 by Cornelia Mello, RN, BSN) Smoking Status: Former smoker If you are a former smoker, when did you quit? (Date/Year): 2014 How many cigarettes a day do you smoke? (20 cigarettes=1 Pk): 0 Second hand tobacco smoke exposure: Yes Do you dip or chew tobacco?: No Do you vape?: No Patient requests smoking cessation consult: No Initiate information on smoking cessation: No Relationship: Level: Independent Do you feel safe in your home environment?: Yes Suffered physical, verbal, emotional, or financial abuse?: No Substance Use: cannabis (any form) POLST Patient has POLST: No Meds/Allgy Home Medications Ambulatory Orders Medication Instructions Recorded Confirmed apixaban 5 mg tablet (Eliquis) 5 mg PO BID 03/16/24 05/25/24 diltiazem HCl 240 mg capsule,24 240 mg PO QAM 03/16/24 05/25/24 hr,extended release (Tiazac) losartan 25 mg tablet 25 mg PO QDAY 03/16/24 05/25/24 clotrimazole-betamethasone 1 1 applic topical BID 04/06/24 05/25/24 %-0.05 % topical cream hydrochlorothiazide 12.5 mg tablet 12.5 mg PO QAM #30 tabs 05/07/24 05/25/24 Allergies Allergies Allergy/AdvReac Type Severity Reaction Status Date / Time acetaminophen (From Percocet) Allergy Severe Unknown Verified 05/24/24 14:48 oxycodone (From Percocet) Allergy Severe Unknown Verified 05/24/24 14:48 Results Lab Results 05/27/24 05:00 05/27/24 05:00 Other Lab Results: Lab Results x24hrs 05/27/24 05/27/24 05/26/24 Range/Units 05:00 01:01 21:13 WBC 8.8 (4.8-10.8) x10^3/uL RBC 3.17 L (4.70-6.10) 10^6/uL Hgb 11.3 L (14.0-18.0) g/dL Hct 32.9 L (42.0-52.0) % MCV 103.8 H (80.0-94.0) fL MCH 35.6 H (27.0-31.0) pg MCHC 34.3 (32.0-36.0) g/dL RDW 16.1 H (12.0-15.0) % Plt Count 164 (130-450) 10^3/uL MPV 10.3 (7.4-11.4) fL Neut # (Auto) 6.2 (1.5-6.6) 10^3/uL Lymph # (Auto) 1.3 L (1.5-3.5) 10^3/uL [place] # (Auto) 1.2 H (0.0-1.0) 10^3/uL Eos # (Auto) 0.1 (0.0-0.7) 10^3/uL Baso # (Auto) 0.0 (0.0-0.1) 10^3/uL Absolute Nucleated RBC 0.00 x10^3/uL Nucleated RBC % 0.0 /100WBC Sodium 133 L 132 L 131 L (135-145) mmol/L Potassium 4.8 H (3.5-4.5) mmol/L Chloride 102 (101-111) mmol/L Carbon Dioxide 27 (21-32) mmol/L Anion Gap 4.0 L (6-13) BUN 56 H (6-20) mg/dL Creatinine 1.1 (0.6-1.3) mg/dL Estimated GFR (MDRD) 67 L (>89) Glucose 151 H (74-104) mg/dL Calcium 7.9 L (8.5-10.3) mg/dL Total Bilirubin 1.0 (0.2-1.0) mg/dL AST 52 H (10-42) IU/L ALT 46 (10-60) IU/L Alkaline Phosphatase 112 (42-121) IU/L Total Protein 4.4 L (6.4-8.9) g/dL Albumin 2.5 L (3.2-5.5) g/dL Globulin 1.9 L (2.1-4.2) g/dL Albumin/Globulin Ratio 1.3 (1.0-2.2) 05/26/24 Range/Units 17:25 WBC (4.8-10.8) x10^3/uL RBC (4.70-6.10) 10^6/uL Hgb (14.0-18.0) g/dL Hct (42.0-52.0) % MCV (80.0-94.0) fL MCH (27.0-31.0) pg MCHC (32.0-36.0) g/dL RDW (12.0-15.0) % Plt Count (130-450) 10^3/uL MPV (7.4-11.4) fL Neut # (Auto) (1.5-6.6) 10^3/uL Lymph # (Auto) (1.5-3.5) 10^3/uL [place] # (Auto) (0.0-1.0) 10^3/uL Eos # (Auto) (0.0-0.7) 10^3/uL Baso # (Auto) (0.0-0.1) 10^3/uL Absolute Nucleated RBC x10^3/uL Nucleated RBC % /100WBC Sodium 132 L (135-145) mmol/L Potassium (3.5-4.5) mmol/L Chloride (101-111) mmol/L Carbon Dioxide (21-32) mmol/L Anion Gap (6-13) BUN (6-20) mg/dL Creatinine (0.6-1.3) mg/dL Estimated GFR (MDRD) (>89) Glucose (74-104) mg/dL Calcium (8.5-10.3) mg/dL Total Bilirubin (0.2-1.0) mg/dL AST (10-42) IU/L ALT (10-60) IU/L Alkaline Phosphatase (42-121) IU/L Total Protein (6.4-8.9) g/dL Albumin (3.2-5.5) g/dL Globulin (2.1-4.2) g/dL Albumin/Globulin Ratio (1.0-2.2) Conclusion and Plan Consultation Note Consultation Note: General Surgery Consultation Note Assessment: 1) Bilateral lower extremity superficial cellulitis and lymphedema. No clinical or lab evidence of a NSTI Recommendation: 1) Keep legs elevated above the level of the heart with two pillows when supine 2) To capture exudate from the skin and protect the affected areas, cover both lower leg ulcerative areas with Vaseline or Xeroform gauze and secure with a Kerlex wrap from the toes to the knees. 3) Continue IV antibiotics <><><><><><><><><><> Reason for Consultation Bilateral lower extremity cellulitis Chief Complaint Bilateral lower extremity redness and swelling LYNNETTE Pederson is a 68 year old male who developed bilateral lower extremity swelling 2 weeks ago. The swelling was managed in the out-patient setting with oral diuretics without success. 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 He was admitted to the [facility] to manage the leg swelling, cellulitis and electrolyte abnormalites and to evaluate him for possible CHF. I am asked by the [facility] to evaluate Mr Mcmahan and assist in the management of his bilateral lower extremity cellulitis. The patient denies fevers, chills or sweats. There is no purulence from the swollen legs but there is weeping of clear fluid Past Medical History Chronic atrial fibrillation HTN Past Surgical History Left knee and right shoulder surgery Abdominal wall hernia Family History - Diabetes (M/D) Social History - Non-smoker Current Medications See "Medication" section Allergies Percocet -> pruritus ROS Pertinent positives Bilateral leg swelling, oozing, redness All other reviewed systems negative Physical Examination Vital Signs: BP 144/88; P 99; RR 20; T 36.8 BMI: 42 GENERAL APPEARANCE: Normal development, BMI 42 PSYCHIATRIC: AAO; Comfortable; Sitting in recliner watching television EYES: Pupils equal, round and reactive to light, sclera anicteric ABD: Soft. No visible surgical scars LYMPHATIC: Neck, Axillae, Groin no palpable adenopathy EXTREMITIES: Bilateral lower extremity edema from the knees to the toes. The ankle edema is 1+ pitting. Both legs demonstrate circumferential erythema between the knees and ankles and superficial desquamation of the epidermis on the anterior aspect of both lower legs. There is oozing of clear exudate from several small ulcers in both legs. There is no purulence or palpable abscess. There is no crepitus in the skin or SQ tissue Labs See "Labs" section Antibiotics: Ceftriaxone VTEP: Apixaban Imaging None Glen Lyles MD, FACS General Surgery Service [phone]
[2024-05-27] MEDS: LOSARTAN 50 MG TABLET PO SCH (13:55)
[2024-05-27] MEDS: MAGNESIUM SULFATE 2 GRAM 2 GM/50 ML BAG IV ONE (22:15)
[2024-05-28 05:16] LABS: BASOPHILS # (AUTO) 0.1 10^3/uL (0.0-0.1); BASOPHILS % (AUTO) 0.5 %; EOSINOPHILS # (AUTO) 0.2 10^3/uL (0.0-0.7); EOSINOPHILS % (AUTO) 1.4 %; HCT - HEMATOCRIT 32.6 % (42.0-52.0); HGB - HEMOGLOBIN 10.9 g/dL (14.0-18.0); LYMPHOCYTES # (AUTO) 1.7 10^3/uL (1.5-3.5); LYMPHOCYTES % (AUTO) 15.5 %; MEAN CORPUSCULAR HGB CONC 33.4 g/dL (32.0-36.0); MEAN CORPUSCULAR VOLUME 104.8 fL (80.0-94.0); MEAN PLATELET VOLUME 9.7 fL (7.4-11.4); MONOCYTES # (AUTO) 1.4 10^3/uL (0.0-1.0); MONOCYTES % (AUTO) 13.1 %; NEUTROPHILS # (AUTO) 7.4 10^3/uL (1.5-6.6); NEUTROPHILS % (AUTO) 68.4 %; PLT - PLATELET COUNT 157 10^3/uL (130-450); RED BLOOD COUNT 3.11 10^6/uL (4.70-6.10); RED CELL DISTRIBUTION WIDTH 16.2 % (12.0-15.0); WHITE BLOOD COUNT 10.8 x10^3/uL (4.8-10.8)
[2024-05-28] MEDS: ACETAMINOPHEN 325 MG TABLET PO PRN (05:24)
[2024-05-28 05:31] LABS: CRP - C-REACTIVE PROTEIN 4.3 mg/dL (<0.5)
[2024-05-28 05:32] LABS: ALBUMIN 2.2 g/dL (3.2-5.5); ALBUMIN/GLOBULIN RATIO 0.9 (1.0-2.2); BILIRUBIN,TOTAL 0.8 mg/dL (0.2-1.0); CALCIUM 7.6 mg/dL (8.5-10.3); CREATININE 1.3 mg/dL (0.6-1.3); TOTAL PROTEIN 4.6 g/dL (6.4-8.9)
[2024-05-28] MEDS: HYDROmorphone 0.5 MG/0.5 ML SYRINGE IVP PRN (06:37)
[2024-05-28] MEDS: FUROSEMIDE 40 MG TABLET PO SCH (09:37)
[2024-05-28] MEDS: FUROSEMIDE 40 MG/4 ML VIAL IVP SCH (13:13)
[2024-05-28] MEDS: HYDROmorphone 1 MG/ML CARPUJECT IVP PRN (13:34)
--- NOTE | 2024-05-28 14:42 | PROVIDER PROGRESS NOTE ---
Subjective Prog Note Date Prog Note Date: 05/28/24 Subjective Pt reports feeling: Improved Subjective: Overall feels much better with each passing day. good urine output Current Medications Current Medications Current Medications: Current Medications Generic Name Dose Route Start Last Admin Trade Name Freq PRN Reason Stop Dose Admin Acetaminophen 650 mg 05/24/24 20:02 05/28/24 05:24 Acetaminophen 325 Mg Tablet PO 650 mg Q4HR PRN Administration Pain 1 to 4, or Fever Apixaban 5 mg 05/25/24 21:00 05/28/24 09:35 Apixaban 5 Mg Tablet PO 5 mg BID NEHA Administration Ceftriaxone Sodium 1 gm 05/25/24 18:00 05/27/24 19:13 Ceftriaxone 1 Gm Vial IVP 1 gm 1800 NEHA Administration Clotrimazole 1 applic 05/25/24 11:00 05/28/24 09:37 Clotrimazole/Betamethasone 15 Gm Tube TOP 1 applic BID NEHA Administration Diltiazem HCl 240 mg 05/27/24 13:00 05/28/24 09:37 Diltiazem Cd 240 Mg Capsule PO 240 mg DAILY NEHA Administration Furosemide 40 mg 05/28/24 13:00 05/28/24 13:13 Furosemide 40 Mg/4 Ml Vial IVP 40 mg DAILY NEHA Administration Hydromorphone HCl 1 mg 05/28/24 09:54 05/28/24 13:34 Hydromorphone 1 Mg/Ml Carpuject IVP 1 mg Q2H PRN Administration Severe Pain (Level 7-10) Lidocaine 1 applic 05/25/24 11:00 05/28/24 13:18 Lidocaine Ointment 5% 35.44 Gm Tube TOP 1 applic QID NEHA Administration Losartan Potassium 25 mg 05/27/24 13:00 05/28/24 09:36 Losartan 50 Mg Tablet PO 25 mg DAILY NEHA Administration Multivitamins/Minerals 1 tab 05/27/24 11:00 05/28/24 09:37 Multivitamin W/Minerals Tablet PO 1 tab DAILYWM NEHA Administration Neomycin/Polymyxin/Bacitracin 1 packet 05/27/24 11:00 05/28/24 09:38 Neomycin/Bacitra/Polymyx Oint Packet TOP 1 packet BID NEHA Administration Ondansetron HCl 4 mg 05/24/24 20:02 Ondansetron Odt 4 Mg Tablet TL Q6HR PRN Nausea / Vomiting Ondansetron HCl 4 mg 05/24/24 20:02 Ondansetron 4 Mg/2 Ml Vial IVP Q6HR PRN Nausea / Vomiting Sodium Chloride 10 ml 05/24/24 20:02 05/28/24 13:34 Sodium Chloride Flush 0.9% 10 Ml Syringe IVP 10 ml PRN PRN Administration NEEDED PER PROVIDER ORDERS Sodium Chloride 10 ml 05/25/24 01:00 05/28/24 09:38 Sodium Chloride Flush 0.9% 10 Ml Syringe IVP 10 ml 0100,0900,1700 NEHA Administration Sodium Chloride 2 gm 05/25/24 21:00 05/28/24 09:36 Sodium Chloride 1 Gm Tablet PO 2 gm BID NEHA Administration Objective Vital Signs/Intake & Output Reviewed Vital Signs: Yes Vital Signs: Vital Signs x48h Temp Pulse Resp BP Pulse Ox 05/28/24 08:28 36.6 C 72 20 105/60 97 Intake & Output: Intake & Output 05/25/24 05/26/24 05/27/24 05/28/24 23:59 23:59 23:59 23:59 Intake Total 2110 / 2110 1184 / 1184 2675 / 2675 2624 / 2624 Output Total 90 / 90 1900 / 1900 1325 / 1325 350 / 350 Balance 2019 / 2019 -716 / -716 1350 / 1350 2274 / 2274 Objective General Appearance: positive No acute distress and Alert Eyes Bilateral: positive Normal inspection and PERRL ENT: positive No signs of dehydration Neck: positive No JVD Respiratory: positive Chest non-tender and No respiratory distress Cardiovascular: positive Regular rate & rhythm and Systolic murmur Abdomen: positive Non-tender Skin: positive Other (Red discoloration across both legs, Area of discoloration marked. Sloughing skin on some areas of blister) Extremities: positive Pedal edema (More than yesterday) Neurologic/Psychiatric: positive Oriented x3 Lab Results 05/28/24 04:59 05/28/24 04:59 Other Labs: Lab Results x24hrs 05/28/24 Range/Units 04:59 WBC 10.8 (4.8-10.8) x10^3/uL RBC 3.11 L (4.70-6.10) 10^6/uL Hgb 10.9 L (14.0-18.0) g/dL Hct 32.6 L (42.0-52.0) % MCV 104.8 H (80.0-94.0) fL MCH 35.0 H (27.0-31.0) pg MCHC 33.4 (32.0-36.0) g/dL RDW 16.2 H (12.0-15.0) % Plt Count 157 (130-450) 10^3/uL MPV 9.7 (7.4-11.4) fL Neut # (Auto) 7.4 H (1.5-6.6) 10^3/uL Lymph # (Auto) 1.7 (1.5-3.5) 10^3/uL [place] # (Auto) 1.4 H (0.0-1.0) 10^3/uL Eos # (Auto) 0.2 (0.0-0.7) 10^3/uL Baso # (Auto) 0.1 (0.0-0.1) 10^3/uL Absolute Nucleated RBC 0.00 x10^3/uL Nucleated RBC % 0.0 /100WBC ESR 13 (0-20) mm/Hr Sodium 130 L (135-145) mmol/L Potassium 5.0 H (3.5-4.5) mmol/L Chloride 97 L (101-111) mmol/L Carbon Dioxide 31 (21-32) mmol/L Anion Gap 2.0 L (6-13) BUN 61 H (6-20) mg/dL Creatinine 1.3 (0.6-1.3) mg/dL Estimated GFR (MDRD) 55 L (>89) Glucose 142 H (74-104) mg/dL Calcium 7.6 L (8.5-10.3) mg/dL Magnesium 2.0 (1.7-2.3) mg/dL Total Bilirubin 0.8 (0.2-1.0) mg/dL AST 38 (10-42) IU/L ALT 38 (10-60) IU/L Alkaline Phosphatase 97 (42-121) IU/L C-Reactive Protein 4.3 H (<0.5) mg/dL Total Protein 4.6 L (6.4-8.9) g/dL Albumin 2.2 L (3.2-5.5) g/dL Globulin 2.4 (2.1-4.2) g/dL Albumin/Globulin Ratio 0.9 L (1.0-2.2) Assessment/Plan Problem List (1) Lower extremity edema: Impression: Improving with IV Lasix Echo has been performed, awaiting read Cellulitis in his legs is likely secondary to stress from lower His ESR and CRP were elevated on admit, and he was placed on Rocephin. Today, swelling is much improved. I removed his dressings on both legs. Skin overall looks macerated, but The swelling is much better. I am leaving his legs open to air, with antibiotic ointment. There was some areas of skin sloughing and purulence. This has been cultured. Areas of redness marked 05/28/2024: His legs are more swollen today than they were yesterday. I think this is because his compressive dressing was taken off yesterday. Continue to elevate legs. I am changing him back to IV Lasix. (2) Hyponatremia: Impression: Likely dilution UA not collected due to patient refusal of catheter and scrotal edema 40 mg IV Lasix daily Monitor intake and output Sodium every 4 hours He is also receiving sodium bicarb pills 05/26/2024: Added salt tabs, increase Lasix dose to 40 mg IV twice daily 05/27/2024: Improved, will keep on salt tabs, stopping sodium bicarb tabs. De- escalate sodium checks to daily 05/28/2024: Sodium 130 today. Continue Lasix, salt pills (3) Acute kidney failure: Impression: Acute kidney failure with metabolic acidosis and hyperkalemia Received [facility] ER provider CR up to 1.6 today, Potassium down to 5.5, CO2 26 Cautiously repleting bicarb given hyponatremia 1300 mg sodium bicarb p.o. twice daily Albumin 05/26/2024: CR 1.4 today 05/27/2024: CR 1.1 today, K4.8. Continue IV Lasix through the end of day today, de-escalate to p.o. in a.m. Stopped bicarb 05/28/2024: CR 1.3, K5. Continue IV Lasix Newly (4) Hypertension, essential, benign: Impression: BP 125/68 Continue to hold home antihypertensives while undergoing aggressive diuresis 05/27/2024: Restarting losartan, diltiazem in a.m. 05/28/2024: BP 105/60. Continue current regimen (5) Atrial fibrillation, chronic: Impression: Currently rate controlled off of his home diltiazem Restart Eliquis Hold Cardizem until echo is read or if his heart rate increases 05/27/2024: Restarting Cardizem (6) Elevated LFTs: Impression: Hepatitis panel negative LFTs now normal
[2024-05-28] MEDS: NEOMYCIN/BACITRA/POLYMYX OINT PACKET TOP SCH (20:58)
[2024-05-29 06:18] LABS: BASOPHILS # (AUTO) 0.1 10^3/uL (0.0-0.1); BASOPHILS % (AUTO) 0.5 %; EOSINOPHILS # (AUTO) 0.2 10^3/uL (0.0-0.7); EOSINOPHILS % (AUTO) 2.1 %; LYMPHOCYTES # (AUTO) 1.7 10^3/uL (1.5-3.5); LYMPHOCYTES % (AUTO) 15.9 %; MEAN CORPUSCULAR HEMOGLOBIN 36.5 pg (27.0-31.0); MEAN CORPUSCULAR HGB CONC 34.4 g/dL (32.0-36.0); MEAN CORPUSCULAR VOLUME 106.3 fL (80.0-94.0); MEAN PLATELET VOLUME 9.3 fL (7.4-11.4); MONOCYTES # (AUTO) 1.3 10^3/uL (0.0-1.0); MONOCYTES % (AUTO) 11.8 %; NEUTROPHILS # (AUTO) 7.4 10^3/uL (1.5-6.6); PLT - PLATELET COUNT 150 10^3/uL (130-450); RED BLOOD COUNT 3.01 10^6/uL (4.70-6.10); RED CELL DISTRIBUTION WIDTH 16.3 % (12.0-15.0); WHITE BLOOD COUNT 10.7 x10^3/uL (4.8-10.8)
[2024-05-29 06:36] LABS: ALBUMIN 2.4 g/dL (3.2-5.5); ALBUMIN/GLOBULIN RATIO 1.1 (1.0-2.2); BILIRUBIN,TOTAL 0.8 mg/dL (0.2-1.0); CALCIUM 7.6 mg/dL (8.5-10.3); CREATININE 1.6 mg/dL (0.6-1.3); POTASSIUM 5.5 mmol/L (3.5-4.5); TOTAL PROTEIN 4.6 g/dL (6.4-8.9)
--- NOTE | 2024-05-29 08:29 | PROVIDER PROGRESS NOTE ---
Progress Note Progress Note Progress Note: General Surgery Progress Note S: Comfortable; Less leg pain O: VSS, afeb; Both lower extremities with persistent erythema but less edema and decreased lymphatic weeping. Gm + cocci and Gm - rods on initial lab report of wound culture. Culture and sensitivities pending. Blood cultures negative. A: Bilateral lower extremity cellulitis - improving slowly P: Continue leg elevation. Adjust antibiotics per C&S. Continue local wound care. No indication for surgical intervention at this point in time. Glen Lyles MD, FACS General Surgery Service
[2024-05-29] MEDS ORDERED: ZINC OXIDE 20% OINT 30 GM TUBE TOP SCH (09:00)
[2024-05-29] MEDS: SODIUM ZIRCONIUM CYCLOSILICATE 5 GM PACKET PO SCH (11:09)
--- NOTE | 2024-05-29 12:33 | PROVIDER PROGRESS NOTE ---
Subjective Prog Note Date Prog Note Date: 05/29/24 Subjective Pt reports feeling: No change Current Medications Current Medications Current Medications: Current Medications Generic Name Dose Route Start Last Admin Trade Name Malaika PRN Reason Stop Dose Admin Acetaminophen 650 mg 05/24/24 20:02 05/28/24 05:24 Acetaminophen 325 Mg Tablet PO 650 mg Q4HR PRN Administration Pain 1 to 4, or Fever Apixaban 5 mg 05/25/24 21:00 05/29/24 08:36 Apixaban 5 Mg Tablet PO 5 mg BID NEHA Administration Ceftriaxone Sodium 1 gm 05/25/24 18:00 05/28/24 18:20 Ceftriaxone 1 Gm Vial IVP 1 gm 1800 NEHA Administration Clotrimazole 1 applic 05/25/24 11:00 05/29/24 08:41 Clotrimazole/Betamethasone 15 Gm Tube TOP 1 applic BID NEHA Administration Diltiazem HCl 120 mg 05/30/24 09:00 Diltiazem Cd 120 Mg Capsule PO DAILY NEHA Furosemide 40 mg 05/29/24 14:00 Furosemide 40 Mg/4 Ml Vial IVP BIDDIURETIC NEHA Hydromorphone HCl 1 mg 05/28/24 09:54 05/29/24 07:38 Hydromorphone 1 Mg/Ml Carpuject IVP 1 mg Q2H PRN Administration Severe Pain (Level 7-10) Albumin Human 12.5 gm in 50 mls @ 50 mls/hr 05/29/24 14:00 Albuminar-25 IV BIDDIURETIC NEHA Lidocaine 1 applic 05/25/24 11:00 05/29/24 08:41 Lidocaine Ointment 5% 35.44 Gm Tube TOP 1 applic QID NEHA Administration Multi-Ingredient Ointment 1 applic 05/29/24 01:27 Zinc Oxide 20% Oint 30 Gm Tube TOP PRN PRN Skin Care Multivitamins/Minerals 1 tab 05/27/24 11:00 05/29/24 08:36 Multivitamin W/Minerals Tablet PO 1 tab DAILYWM NEHA Administration Neomycin/Polymyxin/Bacitracin 4 packet 05/28/24 15:59 05/29/24 11:05 Neomycin/Bacitra/Polymyx Oint Packet TOP Not Given BID NEHA Ondansetron HCl 4 mg 05/24/24 20:02 Ondansetron Odt 4 Mg Tablet TL Q6HR PRN Nausea / Vomiting Ondansetron HCl 4 mg 05/24/24 20:02 Ondansetron 4 Mg/2 Ml Vial IVP Q6HR PRN Nausea / Vomiting Sodium Chloride 10 ml 05/24/24 20:02 05/29/24 07:38 Sodium Chloride Flush 0.9% 10 Ml Syringe IVP 10 ml PRN PRN Administration NEEDED PER PROVIDER ORDERS Sodium Chloride 10 ml 05/25/24 01:00 05/29/24 08:36 Sodium Chloride Flush 0.9% 10 Ml Syringe IVP 10 ml 0100,0900,1700 NEHA Administration Sodium Chloride 2 gm 05/25/24 21:00 05/29/24 08:36 Sodium Chloride 1 Gm Tablet PO 2 gm BID NEHA Administration Sodium Zirconium Cyclosilicate 10 gm 05/29/24 10:00 05/29/24 11:09 Sodium Zirconium Cyclosilicate 5 Gm Packet PO 05/29/24 22:01 10 gm TID NEHA Administration Objective Vital Signs/Intake & Output Reviewed Vital Signs: Yes Vital Signs: Vital Signs x48h Temp Pulse Resp BP Pulse Ox 05/29/24 07:34 36.5 C 57 L 20 99/51 L 96 Intake & Output: Intake & Output 05/26/24 05/27/24 05/28/24 05/29/24 23:59 23:59 23:59 23:59 Intake Total 1184 / 1184 2675 / 2675 3114 / 3114 730 / 730 Output Total 1900 / 1900 1325 / 1325 600 / 600 500 / 500 Balance -716 / -716 1350 / 1350 2514 / 2514 230 / 230 Objective General Appearance: positive No acute distress and Alert Eyes Bilateral: positive Normal inspection and PERRL ENT: positive No signs of dehydration Neck: positive No JVD Respiratory: positive Chest non-tender and No respiratory distress Cardiovascular: positive Regular rate & rhythm and Systolic murmur Abdomen: positive Non-tender Skin: positive Other (Red discoloration across both legs, Area of discoloration marked. Sloughing skin on some areas of blister) Extremities: positive Pedal edema (More than yesterday) Neurologic/Psychiatric: positive Oriented x3 Lab Results 05/29/24 06:00 05/29/24 06:00 Other Labs: Lab Results x24hrs 05/29/24 Range/Units 06:00 WBC 10.7 (4.8-10.8) x10^3/uL RBC 3.01 L (4.70-6.10) 10^6/uL Hgb 11.0 L (14.0-18.0) g/dL Hct 32.0 L (42.0-52.0) % MCV 106.3 H (80.0-94.0) fL MCH 36.5 H (27.0-31.0) pg MCHC 34.4 (32.0-36.0) g/dL RDW 16.3 H (12.0-15.0) % Plt Count 150 (130-450) 10^3/uL MPV 9.3 (7.4-11.4) fL Neut # (Auto) 7.4 H (1.5-6.6) 10^3/uL Lymph # (Auto) 1.7 (1.5-3.5) 10^3/uL [place] # (Auto) 1.3 H (0.0-1.0) 10^3/uL Eos # (Auto) 0.2 (0.0-0.7) 10^3/uL Baso # (Auto) 0.1 (0.0-0.1) 10^3/uL Absolute Nucleated RBC 0.00 x10^3/uL Nucleated RBC % 0.0 /100WBC Sodium 128 L (135-145) mmol/L Potassium 5.5 H (3.5-4.5) mmol/L Chloride 95 L (101-111) mmol/L Carbon Dioxide 31 (21-32) mmol/L Anion Gap 2.0 L (6-13) BUN 83 H* (6-20) mg/dL Creatinine 1.6 H (0.6-1.3) mg/dL Estimated GFR (MDRD) 43 L (>89) Glucose 139 H (74-104) mg/dL Calcium 7.6 L (8.5-10.3) mg/dL Total Bilirubin 0.8 (0.2-1.0) mg/dL AST 38 (10-42) IU/L ALT 40 (10-60) IU/L Alkaline Phosphatase 105 (42-121) IU/L Total Protein 4.6 L (6.4-8.9) g/dL Albumin 2.4 L (3.2-5.5) g/dL Globulin 2.2 (2.1-4.2) g/dL Albumin/Globulin Ratio 1.1 (1.0-2.2) Assessment/Plan Problem List (1) Lower extremity edema: Impression: Improving with IV Lasix Echo has been performed, awaiting read Cellulitis in his legs is likely secondary to stress from lower His ESR and CRP were elevated on admit, and he was placed on Rocephin. Today, swelling is much improved. I removed his dressings on both legs. Skin overall looks macerated, but The swelling is much better. I am leaving his legs open to air, with antibiotic ointment. There was some areas of skin sloughing and purulence. This has been cultured. Areas of redness marked 05/28/2024: His legs are more swollen today than they were yesterday. I think this is because his compressive dressing was taken off yesterday. Continue to elevate legs. I am changing him back to IV Lasix. 05/29/2024: His creatinine is worsening, you and his hyperkalemia and hyponatremia have returned. His echocardiogram showed left vent EF of 65 to 70% and elevated right heart pressures. He is still grossly fluid overloaded. I am adding albumin, to help move fluid back into the vascular space, timed around the time of his Lasix injections. (2) Hyponatremia: Impression: Likely dilution UA not collected due to patient refusal of catheter and scrotal edema 40 mg IV Lasix daily Monitor intake and output Sodium every 4 hours He is also receiving sodium bicarb pills 05/26/2024: Added salt tabs, increase Lasix dose to 40 mg IV twice daily 05/27/2024: Improved, will keep on salt tabs, stopping sodium bicarb tabs. De- escalate sodium checks to daily 05/28/2024: Sodium 130 today. Continue Lasix, salt pills 05/29/2024: Sodium 128 on morning labs. Manage kidney failure as below. Will recheck sodium now that he has had a dose of IV diuretic. If it is below 130, will resume every 4 sodium checks (3) Acute kidney failure: Impression: Acute kidney failure with metabolic acidosis and hyperkalemia Received [facility] per ER provider CR up to 1.6 today, Potassium down to 5.5, CO2 26 Cautiously repleting bicarb given hyponatremia 1300 mg sodium bicarb p.o. twice daily Albumin 05/26/2024: CR 1.4 today 05/27/2024: CR 1.1 today, K4.8. Continue IV Lasix through the end of day today, de-escalate to p.o. in a.m. Stopped bicarb 05/28/2024: CR 1.3, K5. Continue IV Lasix 05/29/2024: CR has worsened to 1.6 today. He is gaining fluid again. I am increasing his dose of diuretic, and adding albumin at the time of diuretic administration to help support kidney function. His CO2 was 31, so no escalation in bicarb therapy. Renal ultrasound has been ordered. (4) Hypertension, essential, benign: Impression: BP 125/68 Continue to hold home antihypertensives while undergoing aggressive diuresis 05/27/2024: Restarting losartan, diltiazem in a.m. 05/28/2024: BP 105/60. Continue current regimen 05/29/2024: Given worsening renal function, holding losartan. I have reduced his dose of diltiazem by half. I am also adding albumin at the time of his Lasix administration (5) Atrial fibrillation, chronic: Impression: Currently rate controlled off of his home diltiazem Restart Eliquis Hold Cardizem until echo is read or if his heart rate increases 05/27/2024: Restarting Cardizem 05/29/2024: I am halving his dose of Cardizem given low heart rate, low blood pressure (6) Elevated LFTs: Impression: Hepatitis panel negative LFTs now normal
[2024-05-29] MEDS: FUROSEMIDE 40 MG/4 ML VIAL IVP SCH (13:41)
[2024-05-29] MEDS: ALBUMIN 25% 12.5 GM/50 ML VIAL IV SCH (13:42)
[2024-05-29 16:08] LABS: CALCIUM 7.6 mg/dL (8.5-10.3); CREATININE 1.6 mg/dL (0.6-1.3); POTASSIUM 5.4 mmol/L (3.5-4.5)
[2024-05-30] MEDS: diltiaZEM CD 120 MG CAPSULE PO SCH (08:16)
--- NOTE | 2024-05-30 09:56 | Ultrasound Report ---
PROCEDURE: US Renal (Retroperitoneal) INDICATIONS: Acute renal failure TECHNIQUE: Real-time scanning was performed of the retroperitoneal organs, with image documentation. COMPARISON: 05/25/2024 FINDINGS: Kidneys: Left kidney not visualized due to inability to reposition. Right kidney measures 11.4 cm. No solid mass. No hydronephrosis. Benign, anechoic cyst on the lateral margin measuring 2.2 cm. Bladder: Pre-void bladder volume is 189 mL. Patient did not void. Pre-void images demonstrate no int raluminal masses or stones. On pre-void images, both ureteral jets are noted with color Doppler inte rrogation. (Of note, ureteral jets may not be detectable in up to 25% of cases due to insufficient d ifferences in specific gravity between ureteral and bladder urine). Miscellaneous: No free abdominal fluid. IMPRESSION: Left kidney not visualized due to patient positioning. Normal appearance of the right kidney. Reviewed by: Heri Chua MD on 05/30/2024 9:55 AM PST Approved by: Heri Chua MD on 05/30/2024 9:55 AM PST Station ID: [id number]
--- NOTE | 2024-05-30 12:33 | WOUND CARE CONSULTATION ---
Referring Provider Name of Referring Provider:: Sandra Herlinda CC & HPI Chief Complaint Chief Complaint: Localized edema to bilateral lower extremities & open wounds History of Present Illness HPI: Pt states open wounds were noted approximately one week ago with onset of edema. States he spends extended amts of time sitting in his recliner during the winter months. Is not really aware of any trauma but does state [place] with multiple vehicles, trees, etc and has potential for small episodes of trauma that he does not notice. Meds/Allgy Home Medications Ambulatory Orders Medication Instructions Recorded Confirmed apixaban 5 mg tablet (Eliquis) 5 mg PO BID 03/16/24 05/25/24 diltiazem HCl 240 mg capsule,24 240 mg PO QAM 03/16/24 05/25/24 hr,extended release (Tiazac) losartan 25 mg tablet 25 mg PO QDAY 03/16/24 05/25/24 clotrimazole-betamethasone 1 1 applic topical BID 04/06/24 05/25/24 %-0.05 % topical cream hydrochlorothiazide 12.5 mg tablet 12.5 mg PO QAM #30 tabs 05/07/24 05/25/24 Allergies Allergies Allergy/AdvReac Type Severity Reaction Status Date / Time oxycodone (From Percocet) Allergy Severe Unknown Verified 05/24/24 14:48 [facility] Social History Social History (Updated 05/07/24 @ 07:34 by Cornelia Mello, RN, BSN) Smoking Status: Former smoker If you are a former smoker, when did you quit? (Date/Year): 2014 How many cigarettes a day do you smoke? (20 cigarettes=1 Pk): 0 Second hand tobacco smoke exposure: Yes Do you dip or chew tobacco?: No Do you vape?: No Patient requests smoking cessation consult: No Initiate information on smoking cessation: No Relationship: Level: Independent Do you feel safe in your home environment?: Yes Suffered physical, verbal, emotional, or financial abuse?: No Substance Use: cannabis (any form) POLST Patient has POLST: No Expanded Wound Exam Vital Signs Vital Signs: Vital Signs Temperature 36.6 C 05/30/24 09:05 Pulse Rate 68 05/30/24 09:05 Respiratory Rate 16 05/30/24 09:05 Blood Pressure 110/55 L 05/30/24 09:05 O2 Saturation 96 05/30/24 09:05 Exam Exam Adult male pt, awake and alert, verbalizations appropriate to situation. Affect normal. Able to provide mostly adequate hx but details slightly fuzzy. Extremities Edema/erythema present to bilateral lower extremities below the knee. Erythema border has been marked to evaluate for expansion or regression. Dorsal pulses palpable but tibial pulses non palpable. Cap refill < 3sec. Increased warmth present to both legs within the erythema. Superficial ulcerations present to the anterior aspects of deonna legs; superficial wound to the L posterior prox calf. Significant amt of xerosis with flaking, lifting skin noted over the lower extremity/feet surfaces. No odor detected. Unable to evaluate amt of exudate as RN had cleansed the legs within the past hour per pt report. Photograph had already been taken by the floor RNs. Physician Wound Note Wound Note (Multiple) Bilateral lower extremity: Wound Type: Moisture Associated Skin Damage Trauma: Other Pre Measurements Pre Wound Surface Area: 0 cm sq Wound Description Wound Base: [place], [place], [place] and [place] Exposed Structures: Adipose Exudate Type: Sero-sanguineous and Serous Exudate Color: Yellow Exudate Amount: Moderate Odor: Mild Periwound Condition: Edema, Erythema, Hyperpigmentation, Dry/scaly, Moist, Macerated, Weeping and Lesions Wound Comment(s): Open to air. Pain Conclusion and Plan Problem List (1) Lower extremity edema: Assessment/Plan: Will utilize mild compression initially since arterial status is unknown at this time. Will use Xeroform gauze over whatever ointments have been prescribed by the hospitalists after cleansing and drying the legs. Will use generous amt of moisturizer to the skin of the feet and legs to ensure pliable and flexible epidermis. ABD pads as needed to areas of exudate, secured with Kerlix, placed without significant tension from the base of the toes to just below the posterior knee crease. Mild compression will be applied with the use of 3 four inch vivien wraps, also placed from the base of the toes to just below the posterior knee crease. Floor RN to change daily. This will provide a mild compression that should begin to move fluid from the legs back into circulation but without causing concerning fluid overload. Suspect pt will need on going management after discharge from the in pt venue and would recommend hospitalist consider follow up at the out pt wound clinic until ulcers are resolved. Additional vascular testing can be addressed with implementation of more aggressive compression at that time. If hospitalist has additional concerns, please contact me. (2) Hyponatremia: (3) Acute kidney failure: (4) Hypertension, essential, benign: (5) Atrial fibrillation, chronic: (6) Elevated LFTs: Results Lab Results: Laboratory Results Sodium 130 mmol/L (135-145) L 05/30/24 10:48 Potassium 5.4 mmol/L (3.5-4.5) H 05/29/24 15:24 Chloride 99 mmol/L (101-111) L 05/29/24 15:24 Carbon Dioxide 28 mmol/L (21-32) 05/29/24 15:24 Anion Gap 2.0 (6-13) L 05/29/24 15:24 BUN 84 mg/dL (6-20) H* 05/29/24 15:24 Creatinine 1.6 mg/dL (0.6-1.3) H 05/29/24 15:24 Glucose 156 mg/dL (74-104) H 05/29/24 15:24 Calcium 7.6 mg/dL (8.5-10.3) L 05/29/24 15:24 Total Bilirubin 0.8 mg/dL (0.2-1.0) 05/29/24 06:00 AST 38 IU/L (10-42) 05/29/24 06:00 ALT 40 IU/L (10-60) 05/29/24 06:00 Alkaline Phosphatase 105 IU/L (42-121) 05/29/24 06:00 Total Protein 4.6 g/dL (6.4-8.9) L 05/29/24 06:00 Albumin 2.4 g/dL (3.2-5.5) L 05/29/24 06:00 Globulin 2.2 g/dL (2.1-4.2) 05/29/24 06:00 Albumin/Globulin Ratio 1.1 (1.0-2.2) 05/29/24 06:00 05/27/24 13:50 Leg - Left Wound Culture - Final [facility] 05/27/24 13:50 Leg - Left Anaerobic Culture - Pending 05/27/24 13:50 Leg - Left Anaerobic Culture Result 1 - Pending 05/27/24 13:50 Leg - Left Gram Stain - Final 05/27/24 13:50 Leg - Left Gram Stain Result 1 - Final 05/27/24 13:50 Leg - Left Gram Stain Result 2 - Final 05/24/24 18:10 Blood Blood Culture - Final NO GROWTH AFTER 5 DAYS 05/24/24 17:56 Blood - Right Arm Blood Culture - Final NO GROWTH AFTER 5 DAYS
[2024-05-30] MEDS: CIPROFLOXACIN 250 MG TABLET PO SCH (13:05)
[2024-05-30] MEDS: oxyCODONE 5 MG TABLET PO PRN (13:37)
--- NOTE | 2024-05-30 20:09 | PROVIDER PROGRESS NOTE ---
Subjective Prog Note Date Prog Note Date: 05/30/24 Subjective Subjective: He has significant pain in his legs. Current Medications Current Medications Current Medications: Current Medications Generic Name Dose Route Start Last Admin Trade Name Malaika PRN Reason Stop Dose Admin Acetaminophen 650 mg 05/24/24 20:02 05/30/24 08:16 Acetaminophen 325 Mg Tablet PO 650 mg Q4HR PRN Administration Pain 1 to 4, or Fever Apixaban 5 mg 05/25/24 21:00 05/30/24 08:16 Apixaban 5 Mg Tablet PO 5 mg BID NEHA Administration Ciprofloxacin 750 mg 05/30/24 11:00 05/30/24 13:05 Ciprofloxacin 250 Mg Tablet PO 750 mg BID NEHA Administration Diltiazem HCl 120 mg 05/30/24 09:00 05/30/24 08:16 Diltiazem Cd 120 Mg Capsule PO 120 mg DAILY NEHA Administration Furosemide 40 mg 05/29/24 14:00 05/30/24 13:05 Furosemide 40 Mg/4 Ml Vial IVP 40 mg BIDDIURETIC NEHA Administration Hydromorphone HCl 1 mg 05/28/24 09:54 05/30/24 10:48 Hydromorphone 1 Mg/Ml Carpuject IVP 1 mg Q2H PRN Administration Severe Pain (Level 7-10) Albumin Human 12.5 gm in 50 mls @ 50 mls/hr 05/29/24 14:00 05/30/24 14:24 Albuminar-25 IV Infused BIDDIURETIC NEHA Infusion Multi-Ingredient Ointment 1 applic 05/29/24 01:27 Zinc Oxide 20% Oint 30 Gm Tube TOP PRN PRN Skin Care Multivitamins/Minerals 1 tab 05/27/24 11:00 05/30/24 08:16 Multivitamin W/Minerals Tablet PO 1 tab DAILYWM NEHA Administration Ondansetron HCl 4 mg 05/24/24 20:02 Ondansetron Odt 4 Mg Tablet TL Q6HR PRN Nausea / Vomiting Ondansetron HCl 4 mg 05/24/24 20:02 Ondansetron 4 Mg/2 Ml Vial IVP Q6HR PRN Nausea / Vomiting Oxycodone HCl 5 mg 05/30/24 12:40 05/30/24 13:37 Oxycodone 5 Mg Tablet PO 5 mg Q4HR PRN Administration Moderate Pain (Level 4-6) Sodium Chloride 10 ml 01/02/25 20:02 05/29/24 13:44 Sodium Chloride Flush 0.9% 10 Ml Syringe IVP 10 ml PRN PRN Administration NEEDED PER PROVIDER ORDERS Sodium Chloride 10 ml 05/25/24 01:00 05/30/24 19:12 Sodium Chloride Flush 0.9% 10 Ml Syringe IVP 10 ml 0100,0900,1700 NEHA Administration Sodium Chloride 2 gm 05/25/24 21:00 05/30/24 08:16 Sodium Chloride 1 Gm Tablet PO 2 gm BID NEHA Administration Objective Vital Signs/Intake & Output Reviewed Vital Signs: Yes Vital Signs: Vital Signs x48h Temp Pulse Resp BP Pulse Ox 05/29/24 07:34 36.5 C 57 L 20 99/51 L 96 Intake & Output: Intake & Output 05/27/24 05/28/24 05/29/24 05/30/24 23:59 23:59 23:59 23:59 Intake Total 2675 / 2675 3114 / 3114 3304 / 3304 1260 / 1260 Output Total 1325 / 1325 600 / 600 925 / 925 1450 / 1450 Balance 1350 / 1350 2514 / 2514 2379 / 2379 -190 / -190 Objective General Appearance: positive No acute distress and Alert Eyes Bilateral: positive Normal inspection and PERRL ENT: positive No signs of dehydration Neck: positive No JVD Respiratory: positive Chest non-tender and No respiratory distress Cardiovascular: positive Regular rate & rhythm and Systolic murmur Abdomen: positive Non-tender Skin: positive Other (Red discoloration across both legs, Area of discoloration marked. Sloughing skin on some areas of blister) Extremities: positive Pedal edema (More than yesterday) Neurologic/Psychiatric: positive Oriented x3 Lab Results 05/29/24 06:00 05/30/24 19:38 Other Labs: Lab Results x24hrs 05/30/24 05/30/24 05/30/24 Range/Units 19:38 15:18 10:48 Sodium 132 L 133 L 130 L (135-145) mmol/L 05/30/24 05/30/24 05/29/24 Range/Units 07:19 02:42 23:45 Sodium 129 L 129 L 130 L (135-145) mmol/L Assessment/Plan Problem List (1) Lower extremity edema: Impression: Improving with IV Lasix, but slowly. he has significant edema and ulceration. Echo has been performed, shows LVH and preserved EF. His ESR and CRP were elevated on admit, and he was placed on Rocephin. He continues to have swelling and weeping. I asked wound care [employer] to see him and she was helpful in recommending compressive dressings. His care was discussed with her. 05/28/2024: His legs are more swollen today than they were yesterday. I think this is because his compressive dressing was taken off yesterday. Continue to elevate legs. I am changing him back to IV Lasix. 05/29/2024: His creatinine is worsening, you and his hyperkalemia and hyponatremia have returned. His echocardiogram showed left vent EF of 65 to 70% and elevated right heart pressures. He is still grossly fluid overloaded. I am adding albumin, to help move fluid back into the vascular space, timed around the time of his Lasix injections. (2) Hyponatremia: Impression: 05/30: Likely dilution UA not collected due to patient refusal of catheter and scrotal edema 40 mg IV Lasix daily Monitor intake and output NA is improved to 132 today. I will continue to monitor. He is also receiving sodium bicarb pills 05/26/2024: Added salt tabs, increase Lasix dose to 40 mg IV twice daily 05/27/2024: Improved, will keep on salt tabs, stopping sodium bicarb tabs. De- escalate sodium checks to daily 05/28/2024: Sodium 130 today. Continue Lasix, salt pills 05/29/2024: Sodium 128 on morning labs. Manage kidney failure as below. Will recheck sodium now that he has had a dose of IV diuretic. If it is below 130, will resume every 4 sodium checks (3) Acute kidney failure: Impression: Acute kidney failure with metabolic acidosis and hyperkalemia Received Lokelma per ER provider CR stable at 1.6 today, Potassium down to 5.4, CO2 26 Cautiously repleting bicarb given hyponatremia 1300 mg sodium bicarb p.o. twice daily Albumin 05/26/2024: CR 1.4 today 05/27/2024: CR 1.1 today, K4.8. Continue IV Lasix through the end of day today, de-escalate to p.o. in a.m. Stopped bicarb 05/28/2024: CR 1.3, K5. Continue IV Lasix 05/29/2024: CR has worsened to 1.6 today. He is gaining fluid again. I am increasing his dose of diuretic, and adding albumin at the time of diuretic administration to help support kidney function. His CO2 was 31, so no escalation in bicarb therapy. Renal ultrasound has been ordered. (4) Hypertension, essential, benign: Impression: BP110/55, 121/64 Continue to hold home antihypertensives while undergoing aggressive diuresis 05/27/2024: Restarting losartan, diltiazem in a.m. 05/28/2024: BP 105/60. Continue current regimen 05/29/2024: Given worsening renal function, holding losartan. I have reduced his dose of diltiazem by half. I am also adding albumin at the time of his Lasix administration (5) Atrial fibrillation, chronic: Impression: Currently rate controlled off of his home diltiazem Restart Eliquis Hold Cardizem until echo is read or if his heart rate increases. He has preserved EF. his HR has been normal. Will continue to hold. 05/27/2024: Restarting Cardizem 05/29/2024: I am halving his dose of Cardizem given low heart rate, low blood pressure (6) Elevated LFTs: Impression: Hepatitis panel negative LFTs now normal I have spent 36 minutes in the care of this patient today. This includes time [id number], review and ordering of diagnostic imaging and laboratory studies and consultation with other providers.. Monitoring the patient's signs symptoms, evaluation of medication effectiveness and patient's response to treatment.
[2024-05-31 06:26] LABS: BASOPHILS # (AUTO) 0.1 10^3/uL (0.0-0.1); BASOPHILS % (AUTO) 0.5 %; EOSINOPHILS # (AUTO) 0.2 10^3/uL (0.0-0.7); EOSINOPHILS % (AUTO) 1.6 %; HCT - HEMATOCRIT 32.4 % (42.0-52.0); HGB - HEMOGLOBIN 10.9 g/dL (14.0-18.0); LYMPHOCYTES # (AUTO) 1.2 10^3/uL (1.5-3.5); LYMPHOCYTES % (AUTO) 13.5 %; MEAN CORPUSCULAR HEMOGLOBIN 35.7 pg (27.0-31.0); MEAN CORPUSCULAR HGB CONC 33.6 g/dL (32.0-36.0); MEAN CORPUSCULAR VOLUME 106.2 fL (80.0-94.0); MEAN PLATELET VOLUME 9.4 fL (7.4-11.4); MONOCYTES # (AUTO) 1.2 10^3/uL (0.0-1.0); MONOCYTES % (AUTO) 12.5 %; NEUTROPHILS # (AUTO) 6.6 10^3/uL (1.5-6.6); NEUTROPHILS % (AUTO) 71.5 %; PLT - PLATELET COUNT 143 10^3/uL (130-450); RED BLOOD COUNT 3.05 10^6/uL (4.70-6.10); RED CELL DISTRIBUTION WIDTH 15.9 % (12.0-15.0); WHITE BLOOD COUNT 9.2 x10^3/uL (4.8-10.8)
[2024-05-31 07:13] LABS: CALCIUM 7.7 mg/dL (8.5-10.3); POTASSIUM 4.6 mmol/L (3.5-4.5)
--- NOTE | 2024-05-31 07:23 | PROVIDER PROGRESS NOTE ---
Progress Note Progress Note Progress Note: General Surgery Progress Note Patient has been seen by wound care and is now responding to light compression dressings. He has less discomfort as the edema has resolved. The cellulitis should continue to respond to the antibiotics. The General Surgery Service will sign off today. Please do not hesitate to contact us if you have further questions or concerns or if you wish to have us continue to follow this patient with you. Glen Lyles MD, FACS General Surgery Service
[2024-05-31] MEDS: NEOMYCIN/BACITRA/POLYMYX OINT PACKET TOP SCH (08:59)
[2024-05-31] MEDS: CLOTRIMAZOLE/BETAMETHASONE 15 GM TUBE TOP SCH (08:59)
[2024-05-31] MEDS: LIDOCAINE OINTMENT 5% 35.44 GM TUBE TOP SCH (09:00)
[2024-05-31 09:03] VITALS: O2SAT 96
--- NOTE | 2024-05-31 21:01 | PROVIDER PROGRESS NOTE ---
Subjective Prog Note Date Prog Note Date: 05/31/24 Subjective Pt reports feeling: Improved Subjective: He is better. has refused shower since he has been here. It sounds as if his living conditions were not ideal [employer]. Living in a 5th wheel, and was defecating into a bucket at times. Current Medications Current Medications Current Medications: Current Medications Generic Name Dose Route Start Last Admin Trade Name Mtq PRN Reason Stop Dose Admin Acetaminophen 650 mg 05/24/24 20:02 05/30/24 08:16 Acetaminophen 325 Mg Tablet PO 650 mg Q4HR PRN Administration Pain 1 to 4, or Fever Apixaban 5 mg 05/25/24 21:00 05/31/24 08:58 Apixaban 5 Mg Tablet PO 5 mg BID NEHA Administration Ciprofloxacin 750 mg 05/30/24 11:00 05/31/24 08:58 Ciprofloxacin 250 Mg Tablet PO 750 mg BID NEHA Administration Clotrimazole 1 applic 05/31/24 09:00 05/31/24 08:59 Clotrimazole/Betamethasone 15 Gm Tube TOP 1 applic DAILY NEHA Administration Diltiazem HCl 120 mg 05/30/24 09:00 05/31/24 08:59 Diltiazem Cd 120 Mg Capsule PO 120 mg DAILY NEHA Administration Furosemide 40 mg 05/29/24 14:00 05/31/24 14:25 Furosemide 40 Mg/4 Ml Vial IVP 40 mg BIDDIURETIC NEHA Administration Hydromorphone HCl 1 mg 05/28/24 09:54 05/31/24 07:51 Hydromorphone 1 Mg/Ml Carpuject IVP 1 mg Q2H PRN Administration Severe Pain (Level 7-10) Albumin Human 12.5 gm in 50 mls @ 50 mls/hr 05/29/24 14:00 05/31/24 15:25 Albuminar-25 IV Infused BIDDIURETIC NEHA Infusion Lidocaine 1 applic 05/31/24 09:00 05/31/24 09:00 Lidocaine Ointment 5% 35.44 Gm Tube TOP 1 applic DAILY NEHA Administration Multi-Ingredient Ointment 1 applic 05/29/24 01:27 Zinc Oxide 20% Oint 30 Gm Tube TOP PRN PRN Skin Care Multivitamins/Minerals 1 tab 05/27/24 11:00 05/31/24 08:59 Multivitamin W/Minerals Tablet PO 1 tab DAILYWM NEHA Administration Neomycin/Polymyxin/Bacitracin 4 packet 05/31/24 09:00 05/31/24 08:59 Neomycin/Bacitra/Polymyx Oint Packet TOP 4 packet DAILY NEHA Administration Ondansetron HCl 4 mg 05/24/24 20:02 Ondansetron Odt 4 Mg Tablet TL Q6HR PRN Nausea / Vomiting Ondansetron HCl 4 mg 05/24/24 20:02 Ondansetron 4 Mg/2 Ml Vial IVP Q6HR PRN Nausea / Vomiting Oxycodone HCl 5 mg 05/30/24 12:40 05/31/24 12:58 Oxycodone 5 Mg Tablet PO 5 mg Q4HR PRN Administration Moderate Pain (Level 4-6) Sodium Chloride 10 ml 05/24/24 20:02 05/29/24 13:44 Sodium Chloride Flush 0.9% 10 Ml Syringe IVP 10 ml PRN PRN Administration NEEDED PER PROVIDER ORDERS Sodium Chloride 10 ml 05/25/24 01:00 05/31/24 16:15 Sodium Chloride Flush 0.9% 10 Ml Syringe IVP 10 ml 0100,0900,1700 NEHA Administration Sodium Chloride 2 gm 05/25/24 21:00 05/31/24 08:58 Sodium Chloride 1 Gm Tablet PO 2 gm BID NEHA Administration Objective Vital Signs/Intake & Output Reviewed Vital Signs: Yes Vital Signs: Vital Signs x48h Temp Pulse Resp BP Pulse Ox 05/31/24 16:31 36.7 C 80 17 118/65 96 05/31/24 15:18 37 C 90 18 124/71 96 05/31/24 14:31 37 C 88 18 130/80 96 05/31/24 13:30 36.6 C Intake & Output: Intake & Output 05/28/24 05/29/24 05/30/24 05/31/24 23:59 23:59 23:59 23:59 Intake Total 3114 / 3114 3304 / 3304 1740 / 1740 2049 Output Total 600 / 600 925 / 925 1450 / 1450 2150 / 2150 Balance 2514 / 2514 2379 / 2379 290 / 290 -100 / -100 Objective General Appearance: positive No acute distress and Alert Eyes Bilateral: positive Normal inspection and PERRL ENT: positive No signs of dehydration Neck: positive No JVD Respiratory: positive Chest non-tender and No respiratory distress Cardiovascular: positive Regular rate & rhythm and Systolic murmur Abdomen: positive Non-tender Skin: positive Other (Lower extremity edema has improved today. He still has some puffiness of his feet after application of Jamarcus wraps yesterday. Today I took down the dressings with the RN. We mechanically debrided his sloughing skin with gauze pads. We dressed his ulcerations with antibiotic ointment and applied Ke) Extremities: positive Pedal edema (More than yesterday) Neurologic/Psychiatric: positive Oriented x3 Lab Results 05/31/24 05:57 05/31/24 05:57 Other Labs: Lab Results x24hrs 05/31/24 Range/Units 05:57 WBC 9.2 (4.8-10.8) x10^3/uL RBC 3.05 L (4.70-6.10) 10^6/uL Hgb 10.9 L (14.0-18.0) g/dL Hct 32.4 L (42.0-52.0) % MCV 106.2 H (80.0-94.0) fL MCH 35.7 H (27.0-31.0) pg MCHC 33.6 (32.0-36.0) g/dL RDW 15.9 H (12.0-15.0) % Plt Count 143 (130-450) 10^3/uL MPV 9.4 (7.4-11.4) fL Neut # (Auto) 6.6 (1.5-6.6) 10^3/uL Lymph # (Auto) 1.2 L (1.5-3.5) 10^3/uL Davis # (Auto) 1.2 H (0.0-1.0) 10^3/uL Eos # (Auto) 0.2 (0.0-0.7) 10^3/uL Baso # (Auto) 0.1 (0.0-0.1) 10^3/uL Absolute Nucleated RBC 0.00 x10^3/uL Nucleated RBC % 0.0 /100WBC Sodium 132 L (135-145) mmol/L Potassium 4.6 H (3.5-4.5) mmol/L Chloride 100 L (101-111) mmol/L Carbon Dioxide 28 (21-32) mmol/L Anion Gap 4.0 L (6-13) BUN 54 H (6-20) mg/dL Creatinine 1.0 (0.6-1.3) mg/dL Estimated GFR (MDRD) 74 L (>89) Glucose 156 H (74-104) mg/dL Calcium 7.7 L (8.5-10.3) mg/dL Assessment/Plan Problem List (1) Lower extremity edema: Impression: 05/31/: Improving with IV Lasix, but slowly. he has significant edema and ulceration.Mechanical compression is assisting with the edema. On exam he has fecal material dried into the edges of his toenails. He has extensive sloughing of his skin which looks to be due to poor hygiene. He has refused showers since he has been here. We reapplied compressive wraps today and he will be bathing tomorrow before he is discharged to home. 05/28/2024: His legs are more swollen today than they were yesterday. I think this is because his compressive dressing was taken off yesterday. Continue to elevate legs. I am changing him back to IV Lasix. 05/29/2024: His creatinine is worsening, you and his hyperkalemia and hyponatremia have returned. His echocardiogram showed left vent EF of 65 to 70% and elevated right heart pressures. He is still grossly fluid overloaded. I am adding albumin, to help move fluid back into the vascular space, timed around the time of his Lasix injections. 05/30:Echo has been performed, shows LVH and preserved EF. His ESR and CRP were elevated on admit, and he was placed on Rocephin. He continues to have swelling and weeping. I asked wound care [employer] to see him and she was helpful in recommending compressive dressings. His care was discussed with her. (2) Hyponatremia: Impression: 05/31: sodium of 132 today his potassium is 4.6. He is getting Lasix daily. With mechanical compression extremity elevation his edema is also improving. He is also getting salt tabs 05/26/2024: Added salt tabs, increase Lasix dose to 40 mg IV twice daily 05/27/2024: Improved, will keep on salt tabs, stopping sodium bicarb tabs. De- escalate sodium checks to daily 05/28/2024: Sodium 130 today. Continue Lasix, salt pills 05/29/2024: Sodium 128 on morning labs. Manage kidney failure as below. Will recheck sodium now that he has had a dose of IV diuretic. If it is below 130, will resume every 4 sodium checks 05/30: Likely dilution UA not collected due to patient refusal of catheter and scrotal edema 40 mg IV Lasix daily Monitor intake and output NA is improved to 132 today. I will continue to monitor. He is also receiving sodium bicarb pills (3) Acute kidney failure: Impression: 05/31: Creatinine is normalized today to 1.0. I am going to continue the Lasix to continue to help him mobilize fluids. He is no longer on bicarb 05/26/2024: CR 1.4 today 05/27/2024: CR 1.1 today, K4.8. Continue IV Lasix through the end of day today, de-escalate to p.o. in a.m. Stopped bicarb 05/28/2024: CR 1.3, K5. Continue IV Lasix 05/29/2024: CR has worsened to 1.6 today. He is gaining fluid again. I am increasing his dose of diuretic, and adding albumin at the time of diuretic administration to help support kidney function. His CO2 was 31, so no escalation in bicarb therapy. Renal ultrasound has been ordered. 05/30:Acute kidney failure with metabolic acidosis and hyperkalemia Received Lokelma per ER provider CR stable at 1.6 today, Potassium down to 5.4, CO2 26 Cautiously repleting bicarb given hyponatremia 1300 mg sodium bicarb p.o. twice daily Albumin (4) Hypertension, essential, benign: Impression: 05/31: Hold home antihypertensives. Selected Entries 05/31/24 14:31 05/31/24 15:18 05/31/24 16:31 Blood Pressure [Right Radial artery] 130/80 124/71 118/65 05/27/2024: Restarting losartan, diltiazem in a.m. 05/28/2024: BP 105/60. Continue current regimen 05/29/2024: Given worsening renal function, holding losartan. I have reduced his dose of diltiazem by half. I am also adding albumin at the time of his Lasix administration 1/8:BP110/55, 121/64 Continue to hold home antihypertensives while undergoing aggressive diuresis (5) Atrial fibrillation, chronic: Impression: Currently rate controlled off of his home diltiazem Restart Eliquis Hold Cardizem until echo is read or if his heart rate increases. He has preserved EF. his HR has been normal. Will continue to hold. 05/27/2024: Restarting Cardizem 05/29/2024: I am halving his dose of Cardizem given low heart rate, low blood pressure (6) Elevated LFTs: Impression: Hepatitis panel negative LFTs now normal I have spent 36 minutes in the care of this patient today. This includes time [id number], review and ordering of diagnostic imaging and laboratory studies and consultation with other providers.. Monitoring the patient's signs symptoms, evaluation of medication effectiveness and patient's response to treatment.
[2024-06-01 05:51] LABS: BASOPHILS # (AUTO) 0.1 10^3/uL (0.0-0.1); BASOPHILS % (AUTO) 0.6 %; EOSINOPHILS # (AUTO) 0.1 10^3/uL (0.0-0.7); EOSINOPHILS % (AUTO) 1.1 %; HCT - HEMATOCRIT 32.4 % (42.0-52.0); HGB - HEMOGLOBIN 10.6 g/dL (14.0-18.0); LYMPHOCYTES # (AUTO) 1.2 10^3/uL (1.5-3.5); LYMPHOCYTES % (AUTO) 13.5 %; MEAN CORPUSCULAR HGB CONC 32.7 g/dL (32.0-36.0); MEAN CORPUSCULAR VOLUME 106.9 fL (80.0-94.0); MEAN PLATELET VOLUME 9.5 fL (7.4-11.4); MONOCYTES # (AUTO) 1.2 10^3/uL (0.0-1.0); MONOCYTES % (AUTO) 13.4 %; NEUTROPHILS # (AUTO) 6.4 10^3/uL (1.5-6.6); NEUTROPHILS % (AUTO) 70.8 %; PLT - PLATELET COUNT 144 10^3/uL (130-450); RED BLOOD COUNT 3.03 10^6/uL (4.70-6.10); RED CELL DISTRIBUTION WIDTH 15.8 % (12.0-15.0); WHITE BLOOD COUNT 9.1 x10^3/uL (4.8-10.8)
[2024-06-01 06:27] LABS: POTASSIUM 4.7 mmol/L (3.5-4.5)
[2024-06-01] MEDS: ZINC OXIDE 20% OINT 30 GM TUBE TOP PRN (07:59)
--- NOTE | 2024-06-01 12:48 | Discharge Summary ---
"Discharge Summary Admit Date: 05/24/24 Discharge Date: 06/01/24 Discharging Provider: Sandra Hernandez PA-C Primary Care Provider: LIAT Gonzalez DIAGNOSES Discharge Diagnoses with Status of Each Condition: Lower extremity edema with wounds, resolving Hyponatremia, resolved Acute kidney failure, resolved Hypertension chronic and treated Atrial fibrillation, chronic and treated. Diltiazem dose changed this admission Eliquis resumed. Elevated LFTs, normalized, normal hepatitis panel HPI History of Present Illness: 68-year-old male PMH of A-fib who has had swelling in his legs since 05/03/2024. He initially presented to a walk-in clinic, where he reported this swelling and asked for a water pill. He was started on hydrochlorothiazide, and his swelling has not improved much. Now, he has red discoloration in both legs. In the ER, CMP showed multiple abnormalities including sodium 126, potassium 6.1, CO2 20, creatinine 1.4, 0.8 a month ago. BNP 383, CRP 5.8. Hospitalist was contacted for admission for acute kidney injury, fluid overload, hyponatremia CONSULTS | PROCEDURES Procedures: Chest x-ray: Low lung volumes. Ill-defined left lower lung opacity probably due to soft tissue artifact although layering effusion is possible. Retroperitoneal ultrasound: Left kidney not visualized due to patient positioning normal appearance of the right kidney HOSPITAL COURSE Hospital Course: (1) Lower extremity edema: : Improving with IV Lasix, but slowly. he has significant edema and ulceration.Mechanical compression is assisting with the edema. On exam he has fecal material dried into the edges of his toenails. He has extensive sloughing of his skin which looks to be due to poor hygiene. He has refused showers since he has been here. We reapplied compressive wraps today and he will be bathing tomorrow before he is discharged to home. 05/28/2024: His legs are more swollen today than they were yesterday. I think this is because his compressive dressing was taken off yesterday. Continue to elevate legs. I am changing him back to IV Lasix. 05/29/2024: His creatinine is worsening, you and his hyperkalemia and hyponatremia have returned. His echocardiogram showed left vent EF of 65 to 70% and elevated right heart pressures. He is still grossly fluid overloaded. I am adding albumin, to help move fluid back into the vascular space, timed around the time of his Lasix injections. 05/30:Echo has been performed, shows LVH and preserved EF. His ESR and CRP were elevated on admit, and he was placed on Rocephin. He continues to have swelling and weeping. I asked wound care [employer] to see him and she was helpful in recommending compressive dressings. His care was discussed with her. (2) Hyponatremia: Impression: 05/31: sodium of 132 today his potassium is 4.6. He is getting Lasix daily. With mechanical compression extremity elevation his edema is also improving. He is also getting salt tabs 05/26/2024: Added salt tabs, increase Lasix dose to 40 mg IV twice daily 05/27/2024: Improved, will keep on salt tabs, stopping sodium bicarb tabs. De- escalate sodium checks to daily 05/28/2024: Sodium 130 today. Continue Lasix, salt pills 05/29/2024: Sodium 128 on morning labs. Manage kidney failure as below. Will recheck sodium now that he has had a dose of IV diuretic. If it is below 130, will resume every 4 sodium checks 05/30: Likely dilution UA not collected due to patient refusal of catheter and scrotal edema 40 mg IV Lasix daily Monitor intake and output NA is improved to 132 today. I will continue to monitor. He is also receiving sodium bicarb pills (3) Acute kidney failure: 05/31: Creatinine is normalized today to 1.0. I am going to continue the Lasix to continue to help him mobilize fluids. He is no longer on bicarb 05/26/2024: CR 1.4 today 05/27/2024: CR 1.1 today, K4.8. Continue IV Lasix through the end of day today, de-escalate to p.o. in a.m. Stopped bicarb 05/28/2024: CR 1.3, K5. Continue IV Lasix 05/29/2024: CR has worsened to 1.6 today. He is gaining fluid again. I am increasing his dose of diuretic, and adding albumin at the time of diuretic administration to help support kidney function. His CO2 was 31, so no escalation in bicarb therapy. Renal ultrasound has been ordered. 05/30:Acute kidney failure with metabolic acidosis and hyperkalemia Received Lokelma per ER provider CR stable at 1.6 today, Potassium down to 5.4, CO2 26 Cautiously repleting bicarb given hyponatremia 1300 mg sodium bicarb p.o. twice daily Albumin (4) Hypertension, essential, benign: 05/31: Hold home antihypertensives. Selected Entries 05/31/2513:31 05/31/2514:18 05/31/2515:31 Blood Pressure Right Radial artery 130/80 124/71 118/65 05/27/2024: Restarting losartan, diltiazem in a.m. 05/28/2024: BP 105/60. Continue current regimen 05/29/2024: Given worsening renal function, holding losartan. I have reduced his dose of diltiazem by half. I am also adding albumin at the time of his Lasix administration 05/30:BP110/55, 121/64 Continue to hold home antihypertensives while undergoing aggressive diuresis (5) Atrial fibrillation, chronic: Currently rate controlled off of his home diltiazem Restart Eliquis Hold Cardizem until echo is read or if his heart rate increases. He has preserved EF. his HR has been normal. Will continue to hold. 05/27/2024: Restarting Cardizem 05/29/2024: I am halving his dose of Cardizem given low heart rate, low blood pressure (6) Elevated LFTs: Hepatitis panel negative LFTs now normal ALLERGIES Allergies Allergy/AdvReac Type Severity Reaction Status Date / Time oxycodone (From Percocet) Allergy Mild Itching Verified 05/30/24 13:20 MEDICATIONS Ambulatory Orders Medication Instructions Recorded Confirmed apixaban 5 mg tablet (Eliquis) 5 mg PO BID 03/16/24 05/25/24 losartan 25 mg tablet 25 mg PO QDAY 03/16/24 05/25/24 clotrimazole-betamethasone 1 1 applic topical BID 04/06/24 05/25/24 %-0.05 % topical cream hydrochlorothiazide 12.5 mg tablet 12.5 mg PO QAM #30 tabs 05/07/24 05/25/24 clotrimazole-betamethasone 1 1 applic topical DAILY #45 grams 06/01/24 %-0.05 % topical cream diltiazem HCl 120 mg 120 mg PO DAILY #30 caps 06/01/24 capsule,extended release 24 hr furosemide 20 mg tablet (Lasix) 20 mg PO DAILY #30 tabs 06/01/24 sodium chloride 1,000 mg soluble 2,000 mg (2 x 1,000 mg) PO QDAY 06/01/24 tablet #30 tabs zinc oxide 20 % topical ointment 1 applic topical PRN PRN Skin Care 06/01/24 #425 grams PHYSICAL EXAM AT DISCHARGE Physical Exam Other/Comments: General Appearance: positive No acute distress and Alert Eyes Bilateral: positive Normal inspection and PERRL ENT: positive No signs of dehydration Neck: positive No JVD Respiratory: positive Chest non-tender and No respiratory distress Cardiovascular: positive Regular rate & rhythm and Systolic murmur Abdomen: positive Non-tender Skin: positive Other (Lower extremity edema has improved today. He still has some puffiness of his feet after application of Jamarcus wraps yesterday. Today I took down the dressings with the RN. We mechanically debrided his sloughing skin with gauze pads. We dressed his ulcerations with antibiotic ointment and applied Kerlix and jamarcus wraps) Extremities: positive Pedal edema (More than yesterday) Neurologic/Psychiatric: positive Oriented x3 LABS 06/01/24 05:18 06/01/24 05:18 FOLLOW UP Follow Up: PCP Karina Mace TIME SPENT Time Spent in Discharge (Minutes): 40 Discharge Plan Discharge Patient Disposition: 06 Home Health Service Condition: Stable Prescriptions: New clotrimazole-betamethasone 1-0.05 % Cream 1 applic topical DAILY Qty: 45 3RF diltiazem HCl 120 mg Capsule,Extended Release 24hr 120 mg PO DAILY Qty: 30 0RF sodium chloride 1,000 mg Tablet,Soluble 2,000 mg PO QDAY Qty: 30 0RF zinc oxide 20 % Ointment 1 applic topical PRN PRN (Reason: Skin Care) Qty: 425 0RF furosemide [Lasix] 20 mg tablet 20 mg PO DAILY Qty: 30 2RF Continued losartan 25 mg tablet 25 mg PO QDAY Eliquis 5 mg tablet 5 mg PO BID hydrochlorothiazide 12.5 mg tablet 12.5 mg PO QAM Qty: 30 0RF clotrimazole-betamethasone 1-0.05 % cream 1 applic topical BID Discontinued diltiazem HCl [Tiazac] 240 mg capsule,extended release 24 hr 240 mg PO QAM Activity Restrictions: Activity as Tolerated Diet: Regular Health Concerns: You have a past medical history of atrial fibrillation. You came to the emergency department with swelling of your legs for about a month. You had an infection in your legs called cellulitis in addition to lots of swelling. You have been treated with antibiotics for a week. Additionally when you came into the emergency department your sodium was low and your kidneys were not functioning as well as they had in the past. Since you have been here we have treated your kidney failure and made that better. We have given you medicine to get the fluid off of your legs. Also we have started applying dressings to your lower extremities which seem to be helping a lot. To do your wound care, you should remove the dressings and then take a shower. Then you will need help. That is why we have ordered home health. They will put ointment and zinc oxide on your legs. Then your legs should be wrapped from the toes up to the knee with Kerlix wrap and then an Jamarcus wrap with about 50% stretch. Doing this will help move the fluid out of your legs and help your wound to heal We have ordered home health to help you with dressing changes to heal your wounds. You will need to follow-up with your primary care provider in 7 to 10 days. At the time of follow-up you will probably need labs drawn. We should check your sodium and your potassium. We should also recheck your blood counts. You were requiring some assistance with your activities of daily living due to the swelling in your legs and your wounds. You state that your home environment is adequate because you live [place] [address] and everything is close by. I have called in new medications to [facility] in [place]. We are continuing your hydrochlorothiazide which is the water pill that you got at the walk-in clinic. We are adding a medication called Lasix to help reduce the swelling in your legs. Additionally we have changed your Cardizem from 240 mg a day to 120 mg a day. I have sent these new tablets into [facility] in [place]. I have also sent in salt tablets to [facility]. Your sodium is low sometimes sodium in the blood gets low when people are on fluid pills and we need to replace that sodium.. Print Language: Bengali Patient Instructions: Chronic Venous Insufficiency, Cellulitis Dc Follow-up Care: Karina Mace ARNP [Primary Care Provider] -"
[2024-06-01 17:50] VITALS: BP 128/64; TEMP 98.4
--- NOTE | 2024-06-01 20:58 | ADVANCE CARE PLANNING NOTE ---
Advance Care Planning Planning Encounter Date: 06/01/24 Time: 14:00 Purpose: determine care desires in the future Parties in Attendance: Patient, Sandra Hernandez PA-C. Patient's mother Viki was on the phone. Decisional Capacity of the Patient: alert and oriented with insight into his care. Diagnosis for Encounter (1) Lower extremity edema: (2) Hyponatremia: (3) Acute kidney failure: (4) Hypertension, essential, benign: (5) Atrial fibrillation, chronic: (6) Elevated LFTs: Encounter Subjective/Patient's Story: Satisfied with his current quality of life. [place] [address] [place] full hookups he likes living there because it is easy for him to move around to get what he needs. Objective/Medical Story: Admission for lower extremity edema hyponatremia and acute kidney injury. This is all improved. He has comorbidities of hypertension atrial fibrillation. He has been in the hospital for almost a week but through multiple modalities we have been able to make him much more comfortable. Goals of Care: He has good quality of life. And wants to continue to live in the way that he is living. Plan: Patient would like to be full code full care. He endorses that his mother would be his medical decision-maker if he were unable to make his own medical decisions. We looped Viki in on the phone this afternoon and she agrees with this. He trusts that his mother would understand when care would need to be discontinued. In discussing this with Viki she admits that she is elderly and not well but does except this responsibility. Code Status: Attempt Resuscitation Time spent on advance care plannin min
== END 2024-06-01 19:50 | disposition home health service (06) | DRG 603 ==
LOC: MS2 14:08 → ED 14:08 → MS2 19:35
PROVIDERS: ADMIT Nurse Practitioner Acute Care; ATTEND Nurse Practitioner Acute Care
DX: Z59.89 Other problems related to housing and economic circumstances; R79.89 Other specified abnormal findings of blood chemistry; Z79.01 Long term (current) use of anticoagulants; E66.9 Obesity, unspecified; L03.115 Cellulitis of right lower limb; Z68.41 Body mass index [BMI] 40.0-44.9, adult; I48.20 Chronic atrial fibrillation, unspecified; S81.801A Unspecified open wound, right lower leg, initial encounter; Z79.899 Other long term (current) drug therapy; E87.5 Hyperkalemia; E87.20 Acidosis, unspecified; N17.9 Acute kidney failure, unspecified; Z87.891 Personal history of nicotine dependence; S80.829A Blister (nonthermal), unspecified lower leg, initial encounter; S81.802A Unspecified open wound, left lower leg, initial encounter; R60.0 Localized edema; N50.89 Other specified disorders of the male genital organs; X58.XXXA Exposure to other specified factors, initial encounter; L03.116 Cellulitis of left lower limb; E87.1 Hypo-osmolality and hyponatremia; E87.70 Fluid overload, unspecified; I10 Essential (primary) hypertension